=== PATIENT | male | born 1995 | race Caucasian/White ===

== ENCOUNTER 2017-03-20 02:36 | Emergency (ER) | payer OTHER ==
[~2017-03-20] VITALS: Ht 185.4 cm; Wt 100.9 kg
[2017-03-20 02:45] VITALS: BP 137/84; TEMP 36.8; O2SAT 98; Ht 185.4 cm; Wt 100.9 kg
[2017-03-20] MEDS ORDERED: DiphenhydrAMINE HCL 50 MG/ML VIAL IV STA (02:55)
[2017-03-20] MEDS ORDERED: SODIUM CHLORIDE 0.9% 1000ML 1,000 ML IV STA (02:55)
[2017-03-20] MEDS ORDERED: METOCLOPRAMIDE HCL INJ 5 MG/ML 2 ML VIAL IV STA (02:55)
[2017-03-20] MEDS ORDERED: KETOROLAC TROMETHAMINE 30 MG/ML VIAL IV STA (02:55)
[2017-03-20] MEDS ORDERED: DICYCLOMINE HCL 10 MG/ML 2 ML AMP IM ONE (03:00)
[2017-03-20 03:13] LABS: BASO % 0.1 %; BASO ABS # 0.01 K/uL (0-0.2); COMPLETE YES; EOS % 5.5 %; HEMATOCRIT 50.2 % (42-52); IG% 0.2 %; LYMPH % 21.6 %; MEAN CELL VOLUME 88.5 fL (80-100); MEAN CORPUSCULAR HEMOGLOBIN 30.7 pg (25-34); MEAN CORPUSCULAR HGB CONC 34.7 g/dl (32-36); MEAN PLATELET VOLUME 11.2 fL (7.4-10.4); MONO % 8.6 %; PLATELET COUNT 224 K/uL (130-400); RED BLOOD COUNT 5.67 M/uL (4.7-6.1); WHITE BLOOD COUNT 11.55 K/uL (4.8-10.8)
[2017-03-20 03:15] VITALS: O2SAT 97
[2017-03-20] MEDS ORDERED: BIOT1CAP8 PO (03:17)
[2017-03-20 03:18] LABS: MANUAL MICROSCOPIC REQUIRED? NO; REVIEW REQ? NO; URINE APPEARANCE CLEAR (CLEAR); URINE BILIRUBIN NEG (NEG); URINE COLOR YELLOW; URINE NITRITE NEG (NEG); URINE PH 5.5 (4.5-7.5); URINE SPECIFIC GRAVITY 1.033 (1.000-1.030); UROBILINOGEN NEG (NEG); ZZUR CULT IF INDIC CLEAN CATCH NO
[2017-03-20 03:20] VITALS: PULSE 84
[2017-03-20 03:39] LABS: BUN/CREATININE RATIO 14.1 (10-20); CALCIUM 8.6 mg/dl (8.5-10.1); CREATININE 0.88 mg/dl (0.60-1.40); POTASSIUM 4.1 mmol/L (3.5-5.1)
[2017-03-20 03:50] LABS: THYROID STIMULATING HORMONE 1.69 uIu/ml (0.300-4.500)
--- NOTE | 2017-03-20 03:56 | EMERGENCY ROOM VISIT NOTE ---
History First contact with patient: 02:43 Chief Complaint: ABDOMINAL PAIN Stated Complaint: SHARP ABDOMINAL PAIN,HARD TO WALK,HOT FLASHES Nursing Triage Summary: Patient ambulatory to triage, states "For the last 2 weeks, I have had really sharp, dull, hollow pains in my stomach. It was just at my belly button but now it is the entirety of my abdomen. I can't walk well because of the pain. I am now unable to go to the bathroom. My last BM was two nights ago. This all started with vomiting two weeks ago. I am no longer vomiting but am nauseated. I am getting hot flashes." History of Present Illness The patient is a 21 year old male who presents to the Emergency Room with complaints of nausea, abdominal bloating, cramping, hot flashes for the past 2 weeks who has been constipated for the past few days. Nothing makes it better or worse. 5 out of 10 throughout the belly. No localized pain. Patient denies chest pain, dyspnea, fever, chills, vomiting, diarrhea, back pain, urinary symptoms. He is tolerated by mouth fluids and food. Review of Systems See HPI for pertinent positives & negatives. A total of 10 systems reviewed and were otherwise negative. Past Medical/Surgical History Asthma, bipolar Social History Smoking Status: Current Every Day Smoker Drug Use: none Marital Status: single Housing Status: lives with family Current/Historical Medications Scheduled Biotin (Biotin), Unknown Dose PO DAILY Allergies Coded Allergies: No Known Allergies (Unverified , 03/20/17) Physical Exam Vital Signs Date Time Temp Pulse Resp B/P Pulse Ox O2 Delivery O2 Flow Rate FiO2 03/20/17 03:20 84 03/20/17 03:15 97 Room Air 03/20/17 02:45 36.8 90 18 137/84 98 Room Air Physical Exam VITALS: Vitals are noted on the nurse's note and reviewed by myself. Vital signs stable. GENERAL: Pleasant male friendly and d talkative, in no acute distress, nondiaphoretic, well-developed well-nourished. SKIN: The skin was without rashes, erythema, edema, or bruising. There is no tenting of the skin. Capillary reflex less than 2 seconds. HEAD: Normocephalic atraumatic. EARS: External auditory canals clear, tympanic membranes pearly ku without erythema or effusion bilaterally. EYES: Pupils equal round and reactive to light and accommodation. Conjunctivae without injection, sclerae without icterus. Extraocular movements intact. NOSE: Patent, turbinates without inflammation or discharge. MOUTH: Mucous membranes moist. Pharynx without erythema or exudate. Uvula midline. Airway patent. Tongue does not deviate. NECK: Supple without nuchal rigidity. No lymphadenopathy. No thyromegaly. Cervical spine is nontender. No JVD. HEART: Regular rate and rhythm without murmurs gallops or rubs. LUNGS: Clear to auscultation bilaterally without wheezes, rales or rhonchi. No dullness to percussion. No retractions or accessory muscle use. ABDOMEN: Positive bowel sounds x 4. Normal tympanic percussion. Soft, mild diffuse tenderness without localized pain, no CVA tenderness, without masses or organomegaly. [place] sign negative. No guarding or rebound tenderness. MUSCULOSKELETAL: No muscle atrophy, erythema, or edema noted. NEURO: Patient was alert and oriented to person place and time. Normal sensation to light and sharp touch. No focal neurological deficits. Medical Decision & Procedures Laboratory Results 03/20/17 02:40 Red Blood Count 5.67, Mean Corpuscular Volume 88.5, Mean Corpuscular Hemoglobin 30.7, Mean Corpuscular Hemoglobin Concent 34.7, Mean Platelet Volume 11.2, Neutrophils (%) (Auto) 64.0, Lymphocytes (%) (Auto) 21.6, Monocytes (%) (Auto) 8.6, Eosinophils (%) (Auto) 5.5, Basophils (%) (Auto) 0.1, Neutrophils # (Auto) 7.40, Lymphocytes # (Auto) 2.50, Monocytes # (Auto) 0.99, Eosinophils # (Auto) 0.63, Basophils # (Auto) 0.01 03/20/17 02:40 Test 03/20/17 02:40 White Blood Count 11.55 K/uL (4.8-10.8) Red Blood Count 5.67 M/uL (4.7-6.1) Hemoglobin 17.4 g/dL (14.0-18.0) Hematocrit 50.2 % (42-52) Mean Corpuscular Volume 88.5 fL (80-100) Mean Corpuscular Hemoglobin 30.7 pg (25-34) Mean Corpuscular Hemoglobin Concent 34.7 g/dl (32-36) Platelet Count 224 K/uL (130-400) Mean Platelet Volume 11.2 fL (7.4-10.4) Neutrophils (%) (Auto) 64.0 % Lymphocytes (%) (Auto) 21.6 % Monocytes (%) (Auto) 8.6 % Eosinophils (%) (Auto) 5.5 % Basophils (%) (Auto) 0.1 % Neutrophils # (Auto) 7.40 K/uL (1.4-6.5) Lymphocytes # (Auto) 2.50 K/uL (1.2-3.4) Monocytes # (Auto) 0.99 K/uL (0.11-0.59) Eosinophils # (Auto) 0.63 K/uL (0-0.5) Basophils # (Auto) 0.01 K/uL (0-0.2) RDW Standard Deviation 40.3 fL (36.4-46.3) RDW Coefficient of Variation 12.6 % (11.5-14.5) Immature Granulocyte % (Auto) 0.2 % Immature Granulocyte # (Auto) 0.02 K/uL (0.00-0.02) Urine Color YELLOW Urine Appearance CLEAR (CLEAR) Urine pH 5.5 (4.5-7.5) Urine Specific [place] 1.033 (1.000-1.030) Urine Protein NEG (NEG) Urine Glucose (UA) NEG (NEG) Urine Ketones TRACE (NEG) Urine Occult Blood NEG (NEG) Urine Nitrite NEG (NEG) Urine Bilirubin NEG (NEG) Urine Urobilinogen NEG (NEG) Urine Leukocyte Esterase NEG (NEG) Anion Gap 6.0 mmol/L (3-11) Est Creatinine Clear Calc Drug Dose 165.8 ml/min Estimated GFR () 142.3 Estimated GFR (Non- 122.8 BUN/Creatinine Ratio 14.1 (10-20) Calcium Level 8.6 mg/dl (8.5-10.1) Total Bilirubin 0.8 mg/dl (0.2-1) Direct Bilirubin 0.1 mg/dl (0-0.2) Aspartate Amino Transf (AST/SGOT) 19 U/L (15-37) Alanine Aminotransferase (ALT/SGPT) 29 U/L (12-78) Alkaline Phosphatase 100 U/L (45-117) Total Protein 7.4 gm/dl (6.4-8.2) Albumin 4.1 gm/dl (3.4-5.0) Lipase 138 U/L (73-393) Thyroid Stimulating Hormone (TSH) 1.690 uIu/ml (0.300-4.500) Medications Administered Medications (Trade) Dose Ordered Sig/Maria Guadalupe Route Start Time Stop Time Status Last Admin Dose Admin Dicyclomine HCl (Bentyl Inj) 20 mg NOW ONCE IM 03/20/17 03:00 03/20/17 03:01 DC 03/20/17 03:10 20 MG Ketorolac Tromethamine (Toradol Inj) 30 mg NOW STAT IV 03/20/17 02:55 03/20/17 02:58 DC 03/20/17 03:10 30 MG Metoclopramide HCl (Reglan Inj) 10 mg NOW STAT IV 03/20/17 02:55 03/20/17 02:58 DC 03/20/17 03:09 10 MG Diphenhydramine HCl 25 mg 25 mg NOW STAT IV 03/20/17 02:55 03/20/17 02:58 DC 03/20/17 03:09 25 MG Sodium Chloride (Nss 1000ml) 1,000 ml @ 999 mls/hr Q1H1M STAT IV 03/20/17 02:55 03/20/17 03:55 03/20/17 03:09 999 MLS/HR ED Course Prior records/ancillary studies reviewed. Triage Nursing notes reviewed. Additional history obtained from family. The patient's history was concerning for abdominal pain. Differential diagnosis: Etiologies such as IBS, stress, appendicitis, diverticulitis, PUD, biliary pathology, UTI, pancreatitis, obstruction, mesenteric ischemia, aortic pathology , infections, inflammatory bowel disease, renal colic, as well as others were entertained. Physical examination findings: As above. ER treatment provided: Bentyl, Reglan, Toradol, IV fluids On reassessment the patient felt better. Diagnostics interpreted by me: The labs revealed mild leukocytosis. No worrisome electrolyte abnormality Imaging studies: Acute abdominal series with no free air, obstruction or pneumothorax per my interpretation Exam and history seem consistent with abdominal pain most likely related to IBS and constipation. Patient is well-appearing. He was advised to take magnesium citrate as directed. He was neurovascularly and neurologic intact. He did not have acute abdomen on exam. He was advised to rest, decrease stress, take medications as directed and to follow-up family care in a few days or here in the ER sooner for abdominal pain, fevers, vomiting, worsening signs or symptoms or as needed. Patient and related out of the ER without difficulties. He was tolerating fluids. By the evaluation outlined above emergent etiologies such as appendicitis, diverticulitis, PUD, biliary pathology, UTI, pancreatitis, obstruction, mesenteric ischemia, aortic pathology, infections, inflammatory bowel disease, renal colic, as well as others were deemed relatively unlikely. The pt informed about the findings as listed above. All questions were answered and pleased with the treatment. Return instructions were outlined and the patient was discharged in stable condition. Outpatient prescription management: Magnesium citrate, Zofran Referral: The patient was referred back to their primary care physician for follow-up in 2 to 3 days for a recheck of the current condition. Case reviewed with my attending Medical Decision As above Impression Primary Impression: Abdominal cramping, generalized Additional Impression: Constipation Departure Information Dispostion Home / Self-Care Condition GOOD Referrals No Doctor, Assigned (PCP) Patient Instructions My [facility] Additional Instructions DO NOT drive, drink alcohol, operate machinery, or perform dangerous activities today. You were given medications in the ER that can affect your ability to safely function or operate a vehicle. Magnesium citrate: Drink half the bottle when you get up, if you do not have a bowel movement within 6 hours then drink the rest. Stay near a toilet. Ibuprofen(Motrin, Advil) may be used for fever or pain. Use 600mg every six hours as needed. Take with food. Avoid using more than 2400mg in a 24 hour period. Do not use 2400mg per day for more than three consecutive days without physician direction. Prolonged inappropriate use can lead to stomach upset or ulcers. (AND/OR) Acetaminophen(Tylenol) may be used for fever or pain. Use 1000mg every six hours as needed. Avoid using more than 3000mg in a 24 hour period. Zofran 4mg: Take one every six hours as needed for nausea. Avoid alcohol, operating machinery or dangerous equipment, working on ladders or roofs, DRIVING , or situations where being under the influence may be dangerous. Rest and drink plenty of fluids as tolerated. Slow sips of water or sports drinks are recommended instead of large amounts all at once. Continue current medications. Return to the ER immediately for worsening or persistent abdominal pain, vomiting, fevers, chest pains, difficulty breathing, black or bloody stools, worsening of your condition, or as needed. Follow up with your primary physician in one to 2 days for a recheck of your current condition. Problem Qualifiers
[2017-03-20] MEDS ORDERED: MAGNESIUM CITRATE 296 ML/BTL PO ONE (04:00)
[2017-03-20] MEDS ORDERED: ONDANSETRON HOME PACK 4MG OD TAB PO ONE (04:00)
--- NOTE | 2017-03-20 09:27 | DIAGNOSTIC IMAGING REPORT ---
PA CHEST RADIOGRAPH AND UPRIGHT AND SUPINE AP RADIOGRAPHS OF THE ABDOMEN CLINICAL HISTORY: Abdominal pain. COMPARISON STUDY: No previous studies for comparison. FINDINGS: Lung volumes are normal. Lungs are clear. There is no pneumothorax or pleural effusion. Cardiac size is normal. Mediastinal contours are normal. There is no evidence of pulmonary edema. There is no free air. The bowel gas pattern is normal. No calcifications are identified. IMPRESSION: 1. No free air or evidence of bowel obstruction. 2. No acute cardiopulmonary findings. Electronically signed by: Dev Cooney M.D. 03/20/2017 9:26 AM Dictated Date/Time: 03/20/2017 9:25 AM
== END 2017-03-20 04:04 | disposition home or self-care (01) ==
LOC: C.EDB 02:38
DX: R10.84 Generalized abdominal pain (principal); K59.00 Constipation, unspecified; J45.909 Unspecified asthma, uncomplicated; F31.9 Bipolar disorder, unspecified; F17.200 Nicotine dependence, unspecified, uncomplicated

== ENCOUNTER 2018-03-09 06:24 | Emergency (ER) | payer OTHER ==
[~2018-03-09] VITALS: Ht 188 cm; Wt 96.7 kg
[~2018-03-09 06:24] MED LIST: BIOT1CAP8 PO
[2018-03-09 06:27] VITALS: TEMP 36.3; Ht 188 cm; Wt 96.7 kg
[2018-03-09] MEDS ORDERED: LORAZEPAM 0.5 MG TAB SL STA (06:50)
--- NOTE | 2018-03-09 07:03 | EMERGENCY ROOM VISIT NOTE ---
History Report prepared by Elinoribjaquelin: Lisa Nazario Under the Supervision of: Dr. Mike Bell D.O. First contact with patient: 06:36 Chief Complaint: ANXIETY Stated Complaint: OVERWHELMING ANXIETY,AGGITATION,EUPHORIA,PANIC History of Present Illness The patient is a 22 year old male who presents to the Emergency Room with complaints of worsening anxiety. He admits to a history of anxiety, manic depression and bipolar disorder. After visiting friends a few days ago, he was overcome with a feeling of agitation, panic and "impending doom". He notes he has experienced some shortness of breath and states "my chest feels heavy and like it's beating really fast". When he was in high school, he admitted himself to a hospital in [place] and was put on medication for bipolar disorder. The last time he saw a psychiatrist was about 1.5 years ago when he lived in [place]. He uses recreational marijuana and states the last time he used was 2 days ago. He denies any SI or HI. He has previously undergone sinus surgery and ear tube placement as a child. The patient is a licensed retail supervisor and states he lives at home with his parents. He has been eating and drinking normally. Source of History: patient Onset: past few days [employer] ROOM Position: other (global) Quality: other (anxiety ) Timing: worsening Associated Symptoms: + chest pain ("heaviness"), + SOB Review of Systems See HPI for pertinent positives & negatives. A total of 10 systems reviewed and were otherwise negative. Past Medical & Surgical Medical Problems: (1) Anxiety (2) Bipolar depression (3) Manic depression Social History Smoking Status: Current Every Day Smoker Alcohol Use: occasionally Drug Use: none Marital Status: single Housing Status: lives with family Occupation Status: employed Current/Historical Medications No Active Prescriptions or Reported Meds Allergies Coded Allergies: No Known Allergies (Unverified , 03/09/18) Physical Exam Vital Signs Date Time Temp Pulse Resp B/P (MAP) Pulse Ox O2 Delivery O2 Flow Rate FiO2 03/09/18 11:18 84 136/82 99 03/09/18 07:13 90 03/09/18 06:27 36.3 87 20 143/77 97 Room Air Physical Exam GENERAL: Patient is awake, alert and somewhat anxious appearing EYES: The conjunctivae are clear. The pupils are round and reactive. EARS, NOSE, MOUTH AND THROAT: The nose is without any evidence of any deformity. Mucous membranes are moist tongue is midline NECK: The neck is nontender and supple. RESPIRATORY: Normal respiratory effort is noted there is no evidence of wheezing rhonchi or rales CARDIOVASCULAR: Heart sounds are tachycardic but regular, no definite murmurs noted, no rubs or gallops, normal S1 normal S2 GASTROINTESTINAL: The abdomen is soft. Bowel sounds are present in all quadrants. Abdomen is nontender MUSCULOSKELETAL/EXTREMITIES: There is no evidence of gross deformity full range of motion is noted in the hips and shoulders SKIN: There is no obvious evidence of any rash. There are no petechiae, pallor or cyanosis noted. NEUROLOGIC: Patient is awake alert and oriented x3 strength is symmetric patellar reflexes are 2+ bilaterally PSYCHIATRIC: The patients affect was calm, appears somewhat anxious, currently denying any SI or HI. Medical Decision & Procedures ER Provider Diagnostic Interpretation: Radiology results as stated below per my review and radiologist interpretation: CHEST ONE VIEW PORTABLE HISTORY: 22 years-old Male Overdose acute anxiety with drug overdose COMPARISON: Acute abdominal series radiographs 03/20/2017 TECHNIQUE: Portable AP view of the chest FINDINGS: Cardiomediastinal and hilar silhouettes are within normal limits. There is no pneumothorax, pleural effusion, focal airspace consolidation or overt pulmonary edema. Bones of the chest appear grossly intact. IMPRESSION: No acute process. The above report was generated using voice recognition software. It may contain grammatical, syntax or spelling errors. Electronically signed by: Que Maynard M.D. 03/09/2018 7:19 AM Laboratory Results 03/09/18 07:08 Red Blood Count 5.15, Mean Corpuscular Volume 88.7, Mean Corpuscular Hemoglobin 31.1, Mean Corpuscular Hemoglobin Concent 35.0, Mean Platelet Volume 11.0, Neutrophils (%) (Auto) 80.7, Lymphocytes (%) (Auto) 11.4, Monocytes (%) (Auto) 5.0, Eosinophils (%) (Auto) 2.6, Basophils (%) (Auto) 0.1, Neutrophils # (Auto) 7.55, Lymphocytes # (Auto) 1.07, Monocytes # (Auto) 0.47, Eosinophils # (Auto) 0.24, Basophils # (Auto) 0.01 03/09/18 07:08 Test 03/09/18 07:00 03/09/18 07:08 Urine Color YELLOW Urine Appearance CLEAR (CLEAR) Urine pH 7.0 (4.5-7.5) Urine Specific [place] 1.010 (1.000-1.030) Urine Protein NEG (NEG) Urine Glucose (UA) NEG (NEG) Urine Ketones NEG (NEG) Urine Occult Blood NEG (NEG) Urine Nitrite NEG (NEG) Urine Bilirubin NEG (NEG) Urine Urobilinogen NEG (NEG) Urine Leukocyte Esterase NEG (NEG) Urine Opiates Screen NEG (NEG) Urine Methadone, Qualitative NEG (NEG) Urine Barbiturates NEG (NEG) Urine Phencyclidine (PCP) Level NEG (NEG) Ur Amphetamine/Methamphetamine NEG (NEG) MDMA (Ecstasy) Screen NEG (NEG) Urine Benzodiazepines Screen NEG (NEG) Urine Cocaine Metabolite NEG (NEG) Urine Marijuana (THC) POS (NEG) White Blood Count 9.36 K/uL (4.8-10.8) Red Blood Count 5.15 M/uL (4.7-6.1) Hemoglobin 16.0 g/dL (14.0-18.0) Hematocrit 45.7 % (42-52) Mean Corpuscular Volume 88.7 fL (80-100) Mean Corpuscular Hemoglobin 31.1 pg (25-34) Mean Corpuscular Hemoglobin Concent 35.0 g/dl (32-36) Platelet Count 185 K/uL (130-400) Mean Platelet Volume 11.0 fL (7.4-10.4) Neutrophils (%) (Auto) 80.7 % Lymphocytes (%) (Auto) 11.4 % Monocytes (%) (Auto) 5.0 % Eosinophils (%) (Auto) 2.6 % Basophils (%) (Auto) 0.1 % Neutrophils # (Auto) 7.55 K/uL (1.4-6.5) Lymphocytes # (Auto) 1.07 K/uL (1.2-3.4) Monocytes # (Auto) 0.47 K/uL (0.11-0.59) Eosinophils # (Auto) 0.24 K/uL (0-0.5) Basophils # (Auto) 0.01 K/uL (0-0.2) RDW Standard Deviation 42.4 fL (36.4-46.3) RDW Coefficient of Variation 13.1 % (11.5-14.5) Immature Granulocyte % (Auto) 0.2 % Immature Granulocyte # (Auto) 0.02 K/uL (0.00-0.02) Prothrombin Time 10.8 SECONDS (9.0-12.0) Prothromb Time International Ratio 1.0 (0.9-1.1) Activated Partial Thromboplast Time 28.7 SECONDS (21.0-31.0) Partial Thromboplastin Ratio 1.1 Anion Gap 5.0 mmol/L (3-11) Est Creatinine Clear Calc Drug Dose 160.4 ml/min Estimated GFR () 144.0 Estimated GFR (Non- 124.3 BUN/Creatinine Ratio 13.5 (10-20) Calcium Level 9.0 mg/dl (8.5-10.1) Total Bilirubin 0.9 mg/dl (0.2-1) Direct Bilirubin 0.3 mg/dl (0-0.2) Aspartate Amino Transf (AST/SGOT) 21 U/L (15-37) Alanine Aminotransferase (ALT/SGPT) 36 U/L (12-78) Alkaline Phosphatase 86 U/L (45-117) Total Creatine Kinase 138 U/L (39-308) Creatine Kinase MB 0.7 ng/ml (0.5-3.6) Creatine Kinase MB Ratio 0.5 (0-3.0) Troponin I < 0.015 ng/ml (0-0.045) Total Protein 7.3 gm/dl (6.4-8.2) Albumin 4.2 gm/dl (3.4-5.0) Lipase 150 U/L (73-393) Salicylates Level < 1.7 mg/dl (2.8-20) Acetaminophen Level < 2 ug/ml (10-30) Ethyl Alcohol mg/dL < 3.0 mg/dl (0-3) Laboratory results per my review. Medications Administered Medications (Trade) Dose Ordered Sig/Maria Guadalupe Route Start Time Stop Time Status Last Admin Dose Admin Lorazepam (Ativan Tab) 0.5 mg NOW STAT SL 03/09/18 06:50 03/09/18 06:51 DC 03/09/18 07:16 0.5 MG Lorazepam (Ativan 1MG Home Pack) 1 homepack UD ONCE PO 03/09/18 11:15 03/09/18 11:16 DC 03/09/18 11:10 1 HOMEPACK ECG Per My Interpretation Indication: chest pain Rate (beats per minute): 89 Rhythm: normal sinus Findings: no ectopy, other (No acute ST segments) Comparison ECG Date: no prior available ED Course 0641: The patient was evaluated in room A6. A complete history and physical examination were performed. 0650: Ativan 0.5 mg SL. 0805: Nursing informed me the patient has been medically cleared. 0807: I reevaluated the patient. He is feeling more anxious. 1055: I reevaluated the patient. He is feeling well and is ready to go home. I discussed his results and discharge instructions and he verbalized complete understanding and agreement. Medical Decision Prior records/ancillary studies reviewed. Triage Nursing notes reviewed. The patient's history was concerning for possible psychiatric disturbance. Differential diagnosis: Etiologies such as mood disorder, infection, hypoglycemia, electrolyte abnormalities, cardiac sources, intracerebral event, toxicologic, neurologic, as well as others were entertained. The patient is a 22-year-old male who presented to the emergency department for a mental health evaluation. The patient was very concerned that he had anxiety. The patient had a history of anxiety reaction in the past and was started on medications for bipolar disorder but stopped taking them. The patient does not have any outpatient follow-up scheduled. He was complaining of mental health problems but also had physical complaints with his anxiety. I discussed the patient's laboratory and radiographic studies with him. He was medically cleared in the emergency department. He is evaluated by the mental health case briefer in the emergency department. The patient was not felt to meet criteria for inpatient admission at this time. I agree with this assessment. The patient was advised to continue all medications as prescribed and rest. He was treated with Ativan in the emergency department with some success. He was also encouraged to follow-up with his primary care physician as well as a primary therapist as soon as possible. Otherwise he was encouraged to return to the emergency department immediately if symptoms change worsen or the need arises. Medication Reconcilliation Current Medication List: was personally reviewed by me Blood Pressure Screening Patient's blood pressure: Elevated blood pressure Blood pressure disposition: Elevated BP felt to be situational Impression Primary Impression: Anxiety Additional Impression: Chest pain Scribe Attestation The scribe's documentation has been prepared under my direction and personally reviewed by me in its entirety. I confirm that the note above accurately reflects all work, treatment, procedures, and medical decision making performed by me. Departure Information Dispostion Home / Self-Care Prescriptions No Active Prescriptions or Reported Meds Referrals No Doctor, Assigned (PCP) Patient Instructions Anxiety Disorder, My [facility] Additional Instructions Follow-up with your therapist as soon as possible. Call your family doctor to schedule a follow-up appointment. Rest and avoid any strenuous activity. Return to the emergency department immediately or call crisis if symptoms change worsen or the need arises. Problem Qualifiers Additional Impression: Chest pain Chest pain type: unspecified Qualified Codes: R07.9 - Chest pain, unspecified
--- NOTE | 2018-03-09 07:21 | DIAGNOSTIC IMAGING REPORT ---
CHEST ONE VIEW PORTABLE HISTORY: 22 years-old Male Overdose acute anxiety with drug overdose COMPARISON: Acute abdominal series radiographs 03/20/2017 TECHNIQUE: Portable AP view of the chest FINDINGS: Cardiomediastinal and hilar silhouettes are within normal limits. There is no pneumothorax, pleural effusion, focal airspace consolidation or overt pulmonary edema. Bones of the chest appear grossly intact. IMPRESSION: No acute process. The above report was generated using voice recognition software. It may contain grammatical, syntax or spelling errors. Electronically signed by: Que Maynard M.D. 03/09/2018 7:19 AM Dictated Date/Time: 03/09/2018 7:19 AM
[2018-03-09 07:27] LABS: BASO % 0.1 %; BASO ABS # 0.01 K/uL (0-0.2); EOS % 2.6 %; EOS ABS # 0.24 K/uL (0-0.5); HEMATOCRIT 45.7 % (42-52); IG# 0.02 K/uL (0.00-0.02); LYMPH % 11.4 %; LYMPH ABS # 1.07 K/uL (1.2-3.4); MEAN CELL VOLUME 88.7 fL (80-100); MEAN CORPUSCULAR HEMOGLOBIN 31.1 pg (25-34); MONO ABS # 0.47 K/uL (0.11-0.59); NEUT % 80.7 %; NEUT ABS # 7.55 K/uL (1.4-6.5); PLATELET COUNT 185 K/uL (130-400); RED CELL DISTRIBUTION WIDTH CV 13.1 % (11.5-14.5); RED CELL DISTRIBUTION WIDTH SD 42.4 fL (36.4-46.3); WHITE BLOOD COUNT 9.36 K/uL (4.8-10.8)
[2018-03-09 07:34] LABS: PTT PATIENT 28.7 SECONDS (21.0-31.0)
[2018-03-09 07:59] LABS: ALBUMIN 4.2 gm/dl (3.4-5.0); ALT/SGPT 36 U/L (12-78); AST/SGOT 21 U/L (15-37); BLOOD UREA NITROGEN 11 mg/dl (7-18); CARBON DIOXIDE 26 mmol/L (21-32); CREATININE 0.84 mg/dl (0.60-1.40); GLUCOSE 121 mg/dl (70-99); LIPASE 150 U/L (73-393); SODIUM 139 mmol/L (136-145)
[2018-03-09 08:04] LABS: ALKALINE PHOSPHATASE 86 U/L (45-117); CKMB 0.7 ng/ml (0.5-3.6); TOTAL PROTEIN 7.3 gm/dl (6.4-8.2)
[2018-03-09] MEDS ORDERED: ATIVAN 1MG HOMEPACK PO ONE (11:15)
[2018-03-09 11:18] VITALS: BP 136/82; PULSE 84; O2SAT 99
== END 2018-03-09 11:23 | disposition home or self-care (01) ==
LOC: C.EDB 06:25 → C.EDA 11:23
DX: F41.9 Anxiety disorder, unspecified (principal); R07.9 Chest pain, unspecified; F31.9 Bipolar disorder, unspecified; F32.9 Major depressive disorder, single episode, unspecified; F17.200 Nicotine dependence, unspecified, uncomplicated

== ENCOUNTER 2020-03-22 20:57 | Inpatient (IN) ==
[2020-03-22] MEDS ORDERED: ADENOSINE IV SOLN 3 MG/ML 2 ML VIAL IV ONE (21:11)
--- NOTE | 2020-03-22 21:43 | Emergency Department Note ---
History of Present Illness General Chief complaint: Cardiac Assessment Stated complaint: IREEGULAR HEART BEAT, CHEST PAIN, SHAKING Time Seen by Provider: 03/22/20 21:16 Source: patient Mode of arrival: ambulatory Limitations: no limitations History of Present Illness Provider complaint: racing heart, palpitations Onset (ago): hour(s) Location: chest Radiation: non-radiation Severity: moderate Maximum Pain Intensity: 10 Quality: + constant Relieved By: + none Exacerbated By: + movement Associated symptoms: + nausea/vomiting and + shortness of breath; no syncope Treatments prior to arrival: none This is a 24 yo male who presents to the ER with complaints of palpitations and chest. Pt states symptoms began at 8am. States he has a sense of a rapid heart rate that has gotten worse throughout the day but felt mostly constant. Pt states no prior hx of heart problems or dysrhythmia. No recent change in meds. Pt admits to occasional use of marijuana but denies any other drug or alcohol use. No recent illness. No know contact with any covid 19 positive individual. Pt states he is adopted and doesn't know his family history. Pt denies any recent travel or change in activity. Pt states with exertion the pain is worse, sense of racing heart is worse, he feels slightly short of breath and slightly nauseated. No dizziness. No change in bowel/bladder function. No headaches, numbness/tingling. Chest pain nonradiating, no change with position. Pt seen during a time of high acuity and national emergency pandemic while wearing PPE. Home Medications Home Medications Medication Instructions Recorded Confirmed Type hydroxyzine HCl 25 - 50 mg PO HS PRN 09/10/19 03/22/20 History lithium carbonate 150 mg PO BID 09/10/19 03/22/20 History lorazepam [Ativan] 0.5 mg PO DAILY PRN 09/10/19 03/22/20 History methylphenidate HCl 18 mg PO QAM 03/22/20 03/22/20 History apixaban [Eliquis] 5 mg PO BID 30 Days #60 tab 03/25/20 Rx metoprolol tartrate 25 mg PO TID 30 Days #90 tab 03/25/20 Rx nicotine 14 mg TRANSDERMAL QAM 30 Days #30 03/25/20 Rx ea Allergies Allergy/AdvReac Type Severity Reaction Status Date / Time No Known Allergies Allergy Unverified 03/22/20 22:46 Past Med/Surg History Medical History Anxiety (Chronic) Bipolar depression (Chronic) Manic depression (Chronic) Surgical History History of placement of ear tubes (Resolved) History of sinus surgery (Resolved) Social History Preferred Language: [place]at[place] Communication Ability: Effective Hat Cutter Required: No Beliefs That Will Affect Care: None Current Living Situation: Family Feels Safe at Home: Yes Smoking Status: Unknown if ever smoked Hx Alcohol Use: No Hx Substance Use: No Review of Systems See HPI for pertinent positives & negatives. and A total of 10 systems reviewed and were otherwise negative Physical Exam Vital Signs Vital Signs - 24 hr 03/22/20 21:00 03/22/20 21:09 03/22/20 21:15 Temperature 36.8 C Temperature Source Oral Pulse Rate 208 H 200 H 197 H Pulse Rate [Left Finger] Pulse Rate from SpO2 Sensor 200 H 196 H Respiratory Rate 18 27 H 28 H Blood Pressure 125/73 148/94 H Blood Pressure [Right Arm] Blood Pressure Mean 90 116 Blood Pressure Mean [Right Arm] Pulse Oximetry 99 100 100 Oxygen Delivery Method Room Air Sepsis Recent Fever Within 48 Hours No Sepsis New/Unexplained Change in Mental Status No Sepsis Action Taken by Nursing No Action Required 03/22/20 21:22 03/22/20 21:30 03/22/20 21:31 Temperature Temperature Source Pulse Rate 188 H 189 H 185 H Pulse Rate [Left Finger] Pulse Rate from SpO2 Sensor 189 H 187 H 187 H Respiratory Rate 14 25 H 24 Blood Pressure 159/90 H 134/89 Blood Pressure [Right Arm] Blood Pressure Mean 119 101 Blood Pressure Mean [Right Arm] Pulse Oximetry 100 100 100 Oxygen Delivery Method Sepsis Recent Fever Within 48 Hours Sepsis New/Unexplained Change in Mental Status Sepsis Action Taken by Nursing 03/22/20 21:45 03/22/20 22:00 03/22/20 22:15 Temperature Temperature Source Pulse Rate 188 H 183 H 190 H Pulse Rate [Left Finger] Pulse Rate from SpO2 Sensor 181 H 185 H Respiratory Rate 19 20 27 H Blood Pressure 131/90 Blood Pressure [Right Arm] Blood Pressure Mean 115 Blood Pressure Mean [Right Arm] Pulse Oximetry 99 100 Oxygen Delivery Method Sepsis Recent Fever Within 48 Hours Sepsis New/Unexplained Change in Mental Status Sepsis Action Taken by Nursing 03/22/20 22:30 03/22/20 22:46 03/22/20 23:00 Temperature Temperature Source Pulse Rate 102 H 82 79 Pulse Rate [Left Finger] Pulse Rate from SpO2 Sensor Respiratory Rate 15 16 12 Blood Pressure 148/93 H Blood Pressure [Right Arm] Blood Pressure Mean 102 Blood Pressure Mean [Right Arm] Pulse Oximetry Oxygen Delivery Method Sepsis Recent Fever Within 48 Hours Sepsis New/Unexplained Change in Mental Status Sepsis Action Taken by Nursing 03/22/20 23:06 03/22/20 23:12 03/22/20 23:30 Temperature Temperature Source Pulse Rate 85 79 Pulse Rate [Left Finger] 88 Pulse Rate from SpO2 Sensor 74 Respiratory Rate 19 19 21 Blood Pressure 104/69 Blood Pressure [Right Arm] 104/69 Blood Pressure Mean 80 Blood Pressure Mean [Right Arm] 80 Pulse Oximetry 97 98 Oxygen Delivery Method Sepsis Recent Fever Within 48 Hours Sepsis New/Unexplained Change in Mental Status Sepsis Action Taken by Nursing 03/22/20 23:32 03/22/20 23:33 03/22/20 23:45 Temperature Temperature Source Pulse Rate 81 79 Pulse Rate [Left Finger] 84 Pulse Rate from SpO2 Sensor 84 76 Respiratory Rate 19 19 21 Blood Pressure 130/64 117/88 Blood Pressure [Right Arm] 130/64 Blood Pressure Mean 103 92 Blood Pressure Mean [Right Arm] 86 Pulse Oximetry 98 98 99 Oxygen Delivery Method Room Air Sepsis Recent Fever Within 48 Hours Sepsis New/Unexplained Change in Mental Status Sepsis Action Taken by Nursing 03/23/20 00:00 03/23/20 00:01 Temperature Temperature Source Pulse Rate 78 69 Pulse Rate [Left Finger] Pulse Rate from SpO2 Sensor 77 74 Respiratory Rate 19 20 Blood Pressure 119/74 Blood Pressure [Right Arm] Blood Pressure Mean 77 Blood Pressure Mean [Right Arm] Pulse Oximetry 97 97 Oxygen Delivery Method Sepsis Recent Fever Within 48 Hours Sepsis New/Unexplained Change in Mental Status Sepsis Action Taken by Nursing GENERAL: alert, anxious appearing, well nourished, no distress, non-toxic EYE EXAM: normal conjunctiva, PERRL and EOM's grossly intact OROPHARYNX: no exudate, no erythema, lips, buccal mucosa, and tongue normal and mucous membranes are moist NECK: supple, no nuchal rigidity, no adenopathy, non-tender LUNGS: Clear to auscultation. Normal chest wall mechanics, no w/r/r HEART: no murmurs, S1 normal and S2 normal, HR 187 on tele, appears to be SVT ABDOMEN: abdomen soft, non-tender, normo-active bowel sounds, no masses, no rebound or guarding. BACK: Back is symmetrical on inspection and there is no deformity, no midline tenderness, no CVA tenderness. SKIN: no rashes and no bruising UPPER EXTREMITIES: upper extremities are grossly normal. FROM, nml pulses b/l. LOWER EXTREMITIES: No pitting edema. FROM, nml pulses b/l. NEURO EXAM: Normal sensorium, cranial nerves II-XII grossly intact, normal speec h, no gross weakness of arms, no gross weakness of legs. Gross sensation intact. Course Course 2125: Pt was evaluated in room A1 and nursing staff placed pt on monitor and started IV in anticipation of chemical cardioversion. Pt given 6mg and then 12 mg of adenosine. No conversion after adenosine, appears to be rapid atrial flutter when slowed. I discussed electrical cardioversion with the patient and he would like to avoid this if possible. 2144: Discussed with Dr. Torres given concern for possible short IN on one tracing. He will review EKG's. 2149: Dr. Torres reviewed and agrees with plan for cardizem IV. Discussed anticoagulation - would start on eliquis 5 mg BID. 2199: Pt updated on discussion and plan. 2251: Updated Dr. Torres. Recommends admission on cardizem drip at this time. 2325: Case discussed with Dr. Powers. Administered Medications Discontinued Medications Adenosine (Adenosine) Confirm Administered Dose 18 mg IV .STK-MED ONE Stop: 03/22/20 21:12 Last Admin: 03/22/20 21:35 Dose: 18 mg Documented by: [id number] Apixaban (Eliquis) 5 mg PO NOW STA Stop: 03/22/20 23:07 Last Admin: 03/22/20 23:22 Dose: 5 mg Documented by: [id number] Apixaban (Eliquis) 5 mg PO BID [facility] Stop: 04/22/20 08:59 Last Admin: 03/25/20 09:25 Dose: 5 mg Documented by: [id number] Admin: 03/24/20 20:46 Dose: 5 mg Documented by: [id number] Admin: 03/24/20 08:19 Dose: 5 mg Documented by: [id number] Admin: 03/23/20 20:49 Dose: 5 mg Documented by: [id number] Admin: 03/23/20 08:06 Dose: 5 mg Documented by: [id number] Diltiazem HCl (Cardizem) 20 mg IV NOW STA Stop: 03/22/20 22:00 Last Admin: 03/22/20 22:15 Dose: 20 mg Documented by: [id number] Cosigned by: [id number] Hydroxyzine HCl (Vistaril) 25 mg PO HSZ PRN PRN Reason: Sleep Stop: 04/23/20 14:04 Last Admin: 03/24/20 20:46 Dose: 12.5 mg Documented by: [id number] Sodium Chloride (Nss 1000ml) 1,000 mls @ 999 mls/hr IV .Q1H1M ONE Stop: 03/22/20 22:59 Last Infusion: 03/22/20 22:50 Dose: 0 mls/hr Documented by: [id number] Admin: 03/22/20 22:15 Dose: 999 mls/hr Documented by: [id number] Diltiazem HCl 125 mg/ Dextrose 125 mls @ 5 mls/hr IV .Q24H NINA; Protocol Stop: 04/21/20 21:59 Last Admin: 03/24/20 00:30 Dose: Not Given Documented by: [id number] Titration: 03/23/20 10:59 Dose: 0 mg/hr, 0 mls/hr Documented by: [id number] Cosigned by: [id number] Titration: 03/23/20 06:56 Dose: 5 mg/hr, 5 mls/hr Documented by: [id number] Cosigned by: [id number] Titration: 03/23/20 02:12 Dose: 5 mg/hr, 5 mls/hr Documented by: [id number] Cosigned by: [id number] Admin: 03/22/20 23:17 Dose: 2.5 mg/hr, 2.5 mls/hr Documented by: [id number] Cosigned by: [id number] Sodium Chloride (Nss 1000ml) 1,000 mls @ 75 mls/hr IV .[id number] NINA Stop: 04/22/20 01:06 Last Infusion: 03/23/20 09:37 Dose: 0 mls/hr Documented by: [id number] Admin: 03/23/20 01:15 Dose: 75 mls/hr Documented by: [id number] Sodium Chloride (Nss) 500 mls @ 80 mls/hr IV .Q6H15M NINA Stop: 04/23/20 23:54 Last Infusion: 03/25/20 11:26 Dose: 0 mls/hr Documented by: [id number] Admin: 03/25/20 06:09 Dose: 80 mls/hr Documented by: [id number] Infusion: 03/25/20 06:09 Dose: 80 mls/hr Documented by: [id number] Admin: 03/25/20 00:33 Dose: 80 mls/hr Documented by: [id number] [place] Carbonate ([place] Carbonate) 150 mg PO BID NINA Stop: 04/22/20 08:59 Last Admin: 03/24/20 08:20 Dose: 150 mg Documented by: [id number] Admin: 03/24/20 01:51 Dose: Not Given Documented by: [id number] Admin: 03/23/20 08:05 Dose: 150 mg Documented by: [id number] [place] Carbonate ([place] Carbonate) 150 mg PO DAILY NINA Stop: 04/24/20 08:59 Last Admin: 03/25/20 09:25 Dose: 150 mg Documented by: [id number] Metoprolol Tartrate (Lopressor) 12.5 mg PO BID NINA Stop: 04/22/20 09:24 Last Admin: 03/23/20 09:49 Dose: 12.5 mg Documented by: [id number] Metoprolol Tartrate (Lopressor) 25 mg PO BID NINA Stop: 04/22/20 17:44 Last Admin: 03/24/20 08:19 Dose: 25 mg Documented by: [id number] Admin: 03/23/20 20:49 Dose: 25 mg Documented by: [id number] Admin: 03/23/20 18:00 Dose: 25 mg Documented by: [id number] Metoprolol Tartrate (Lopressor) 25 mg PO TID NINA Stop: 04/23/20 13:59 Last Admin: 03/25/20 14:24 Dose: 25 mg Documented by: [id number] Admin: 03/25/20 09:24 Dose: 25 mg Documented by: [id number] Admin: 03/24/20 20:45 Dose: 25 mg Documented by: [id number] Admin: 03/24/20 13:07 Dose: 25 mg Documented by: [id number] Metoprolol Tartrate (Lopressor) 5 mg IV NOW STA Stop: 03/25/20 03:45 Last Admin: 03/25/20 03:56 Dose: 5 mg Documented by: [id number] Metoprolol Tartrate (Lopressor) Confirm Administered Dose 5 mg IV .STK-MED ONE Stop: 03/25/20 07:44 Last Admin: 03/25/20 07:46 Dose: 5 mg Documented by: [id number] Metoprolol Tartrate (Lopressor) 5 mg IV NOW STA Stop: 03/25/20 07:45 Last Admin: 03/25/20 07:48 Dose: Not Given Documented by: [id number] Metoprolol Tartrate (Lopressor) 2.5 mg IV NOW STA Stop: 03/25/20 07:52 Last Admin: 03/25/20 07:53 Dose: 2.5 mg Documented by: [id number] Miscellaneous () 1 ea N/A NOW [facility] Stop: 03/22/20 22:00 Last Admin: 03/22/20 23:20 Dose: 1 ea Documented by: [id number] Miscellaneous (Order Awaiting Action) 1 ea N/A QS [facility] Stop: 04/22/20 07:59 Last Admin: 03/23/20 09:43 Dose: Not Given Documented by: [id number] Miscellaneous (Remove Nicoderm Patch) 1 ea N/A DAILY@0859 [facility] Stop: 04/23/20 08:58 Last Admin: 03/25/20 09:25 Dose: 1 ea Documented by: [id number] Admin: 03/24/20 11:14 Dose: Not Given Documented by: [id number] Nicotine (Nicoderm Cq) 14 mg TD QAM [facility] Stop: 04/23/20 08:59 Last Admin: 03/25/20 09:25 Dose: 14 mg Documented by: [id number] Admin: 03/24/20 09:33 Dose: 14 mg Documented by: [id number] Potassium Chloride (Klor-Con M20) 40 meq PO NOW [facility] Stop: 03/23/20 00:27 Last Admin: 03/23/20 00:47 Dose: 40 meq Documented by: [id number] Critical Care Time Critical Care Time: Yes Total Critical Care Time: 48 Critical care of 48 min performed to assess and manage high likelihood of life- threatening dysrhythmia, involving labs/imaging/repeat EKG's performed with assessment to evaluate dysrhythmia diagnosis with frequent reassessment. This time includes bedside time, treatment discussions with patient/family/consultants, documentation time and excludes procedure time. Medical Decision Making Differential Diagnosis Differential diagnosis includes etiologies such as premature contractions, electrolyte abnormality, cardiac dysrhythmia, thyroid dysfunction, pulmonary embolism, infection, gastrointestinal, as well as others were entertained. Medical Records Attestation: I reviewed the patient's medical records. Home Medications Current Medication List: was personally reviewed by me Laboratory Data Attestation: I reviewed the patient's lab results. Result diagrams: 03/25/20 06:54 03/25/20 06:54 Lab Results 03/22/20 03/22/20 03/22/20 Range/Units 21:10 21:10 21:10 WBC 11.78 H (4.8-10.8) K/uL RBC 5.52 (4.7-6.1) M/uL Hgb 17.4 (14.0-18.0) g/dL Hct 49.0 (42-52) % MCV 88.8 (80-100) fL MCH 31.5 (25-34) pg MCHC 35.5 (32-36) g/dL RDW Std Deviation 39.5 (36.4-46.3) fL RDW Coeff of Anamika 12.4 (11.5-14.5) % Plt Count 292 (130-400) K/uL MPV 11.9 H (7.4-10.4) fL Immature Gran % (Auto) 0.3 % Neut % (Auto) 68.2 % Lymph % (Auto) 21.5 % [place] % (Auto) 7.5 % Eos % (Auto) 2.3 % Baso % (Auto) 0.2 % Immature Gran # (Auto) 0.03 H (0.00-0.02) K/uL Neut # (Auto) 8.05 H (1.4-6.5) K/uL Lymph # (Auto) 2.53 (1.2-3.4) K/uL [place] # (Auto) 0.88 H (0.11-0.59) K/uL Eos # (Auto) 0.27 (0-0.5) K/uL Baso # (Auto) 0.02 (0-0.2) K/uL Sodium 137 (136-145) mmol/L Potassium 3.4 L (3.5-5.1) mmol/L Chloride 105 (98-107) mmol/L Carbon Dioxide 24 (21-32) mmol/L Anion Gap 9.0 (3-11) BUN 10 (7-18) mg/dl Creatinine 1.05 (0.6-1.4) mg/dl Est Cr Clr Drug Dosing 122.6 ml/min Est GFR ( Amer) 114.6 Est GFR (Non-Af Amer) 98.9 BUN/Creatinine Ratio 9.0 L (10-20) Glucose 134 H (70-99) mg/dl Calcium 9.6 (8.5-10.1) mg/dl Magnesium 2.3 (1.8-2.4) mg/dl Total Bilirubin 1.2 H (0.2-1) mg/dl AST 24 (15-37) U/L ALT 43 (12-78) U/L Alkaline Phosphatase 90 (45-117) U/L Total Protein 7.8 (6.4-8.2) gm/dl Albumin 4.6 (3.4-5.0) gm/dl Globulin 3.2 (2.5-4.0) gm/dl Albumin/Globulin Ratio 1.4 (0.9-2) Lipase 83 (73-393) U/L TSH 1.470 (0.300-4.500) uIu/ml [place] (0.6-1.2) mmol/L Lyme Disease IgG Ab Negative (Negative) Lyme Disease IgM Ab Negative (Negative) 03/22/20 Range/Units 21:10 WBC (4.8-10.8) K/uL RBC (4.7-6.1) M/uL Hgb (14.0-18.0) g/dL Hct (42-52) % MCV (80-100) fL MCH (25-34) pg MCHC (32-36) g/dL RDW Std Deviation (36.4-46.3) fL RDW Coeff of Anamika (11.5-14.5) % Plt Count (130-400) K/uL MPV (7.4-10.4) fL Immature Gran % (Auto) % Neut % (Auto) % Lymph % (Auto) % [place] % (Auto) % Eos % (Auto) % Baso % (Auto) % Immature Gran # (Auto) (0.00-0.02) K/uL Neut # (Auto) (1.4-6.5) K/uL Lymph # (Auto) (1.2-3.4) K/uL [place] # (Auto) (0.11-0.59) K/uL Eos # (Auto) (0-0.5) K/uL Baso # (Auto) (0-0.2) K/uL Sodium (136-145) mmol/L Potassium (3.5-5.1) mmol/L Chloride (98-107) mmol/L Carbon Dioxide (21-32) mmol/L Anion Gap (3-11) BUN (7-18) mg/dl Creatinine (0.6-1.4) mg/dl Est Cr Clr Drug Dosing ml/min Est GFR ( Amer) Est GFR (Non-Af Amer) BUN/Creatinine Ratio (10-20) Glucose (70-99) mg/dl Calcium (8.5-10.1) mg/dl Magnesium (1.8-2.4) mg/dl Total Bilirubin (0.2-1) mg/dl AST (15-37) U/L ALT (12-78) U/L Alkaline Phosphatase (45-117) U/L Total Protein (6.4-8.2) gm/dl Albumin (3.4-5.0) gm/dl Globulin (2.5-4.0) gm/dl Albumin/Globulin Ratio (0.9-2) Lipase (73-393) U/L TSH (0.300-4.500) uIu/ml [place] < 0.2 L (0.6-1.2) mmol/L Lyme Disease IgG Ab (Negative) Lyme Disease IgM Ab (Negative) Imaging Data Radiologist's Impression: SINGLE VIEW CHEST CLINICAL HISTORY: Atypical chest pain. FINDINGS: An AP, portable, upright chest radiograph is compared to study dated 03/09/2018. The cardiomediastinal silhouette is unremarkable. The lungs and pleural spaces are clear. No pneumothorax is seen. The bony thorax is grossly intact. IMPRESSION: No active disease in the chest. ACT 112: Negative or not required by law. Electronically signed by: Jose E Curtis M.D. 03/22/2020 10:24 PM ECG Data Attestation: I personally reviewed and interpreted this ECG as follows: Indication: + palpitations and + tachycardia Rate (beats per minute): 200 Rhythm: + SVT ECG Intervals/blocks: + Normal QRS and + Normal QT ECG [place]: + Normal ECG ST segments: + Normal ST segments Additional Comments: Repeat EKG at 2123 showed a sinus tachycardia at 187 with a normal axis, IN interval 130, QRS 60, with slight ST depression noted in 2, 3, aVF, and V3 through V6, likely rate related. Repeat EKG following Cardizem bolus showed atrial fibrillation at a rate of 81, normal axis, QRS 82, QTc 381, prior ST depressions now resolved. Blood Pressure Blood Pressure Findings: Normal blood pressure MDM Narrative Pt presenting with sense of palpitations and chest pain and found to have rapid HR around 200 bpm. Initially thought to be SVT, pt placed in A1 and prepared to adenosine. Pt given 6mg and then 12 mg of adenosine which slowed pt revealing underlying atrial flutter but returned to prior elevated rate. Given concern for possible short IN, I discussed the case with cards for their review given that WPW should be treated differently than a.flutter. They felt no evidence of WPW and agreed with plan for cardizem. Pt slowed with cardizem and appeared to be in a rate controlled atrial fibrillation. Given various rhythms noted and pt wished to avoid electrical cardioversion if possible, discussed with hospitalist for admission. Pt denies drug use. Does take some meds but denies any changes. No recent illness. I do not suspect ACS or PE. Unknown fam hx. I feel it is reasonable for him to have inpatient cards evaluation including echo. No evidence of infectious etiology or thyroid storm. An order was placed for continuous cardiac monitoring. The monitor shows a rate of 180 with atrial flutter rhythm. Impression & Plan Atrial flutter, Atrial fibrillation, Atypical chest pain, Palpitation Discharge Plan Visit Data *Final* Discharge Date/Time: 03/23/20 00:44 Chief Complaint: Cardiac Assessment Stated Complaint: IREEGULAR HEART BEAT, CHEST PAIN, SHAKING ED Provider: Kaitlyn Pizano Discharge Problem: Atrial flutter, Atrial fibrillation, Atypical chest pain, Palpitation Patient Disposition: Admitted As Inpatient Condition: Good Discharge Instructions Interventions: ED Discharge Assessment Last Done: 03/23/20 00:44 Discharge Problem: Atrial flutter Qualifiers: Atrial flutter type: unspecified Qualified Code(s): I48.92 - Unspecified atrial flutter Atrial fibrillation Qualifiers: Atrial fibrillation type: unspecified Qualified Code(s): I48.91 - Unspecified atrial fibrillation
[2020-03-22] MEDS ORDERED: STAT IV Infusion **Titration per Protocol STA (21:59)
[2020-03-22] MEDS ORDERED: dilTIAZem HCl 5 MG/ML 5 ML VIAL IV STA (21:59)
[2020-03-22] MEDS ORDERED: SODIUM CHLORIDE 0.9% 1000ML 1,000 ML IV ONE (21:59)
[2020-03-22 22:08] LABS: Basophils # (auto) 0.02 K/uL (0-0.2); Basophils % (auto) 0.2 %; Eosinophils # (auto) 0.27 K/uL (0-0.5); Eosinophils % (auto) 2.3 %; Hemoglobin 17.4 g/dL (14.0-18.0); Immature Granulocytes # (auto) 0.03 K/uL (0.00-0.02); Immature Granulocytes % (auto) 0.3 %; Lymphocytes # (auto) 2.53 K/uL (1.2-3.4); Lymphocytes % (auto) 21.5 %; Mean Corpuscular Hemoglobin 31.5 pg (25-34); Mean Corpuscular Hgb Conc 35.5 g/dL (32-36); Mean Corpuscular Volume 88.8 fL (80-100); Mean Platelet Volume 11.9 fL (7.4-10.4); Monocytes # (auto) 0.88 K/uL (0.11-0.59); Monocytes % (auto) 7.5 %; Neutrophils # (auto) 8.05 K/uL (1.4-6.5); Neutrophils % (auto) 68.2 %; Platelet Count 292 K/uL (130-400); RDW Coefficient of Variation 12.4 % (11.5-14.5); RDW Standard Deviation 39.5 fL (36.4-46.3); Red Blood Count 5.52 M/uL (4.7-6.1); White Blood Count 11.78 K/uL (4.8-10.8)
[2020-03-22 22:16] LABS: Albumin Level 4.6 gm/dl (3.4-5.0); Calcium 9.6 mg/dl (8.5-10.1); Creatinine Clr Calc Pharmacy 122.6 ml/min; Est GFR (African American) 114.6; Est GFR (Non-African American) 98.9; Magnesium 2.3 mg/dl (1.8-2.4); Potassium 3.4 mmol/L (3.5-5.1)
--- NOTE | 2020-03-22 22:26 | XRay Report ---
SINGLE VIEW CHEST CLINICAL HISTORY: Atypical chest pain. FINDINGS: An AP, portable, upright chest radiograph is compared to study dated 03/09/2018. The cardiome diastinal silhouette is unremarkable. The lungs and pleural spaces are clear. No pneumothorax is seen . The bony thorax is grossly intact. IMPRESSION: No active disease in the chest. ACT 112: Negative or not required by law. Electronically signed by: Jose E Curtis M.D. 03/22/2020 10:24 PM
[2020-03-22 22:27] LABS: Albumin Globulin Ratio 1.4 (0.9-2); Bilirubin,Total 1.2 mg/dl (0.2-1); Globulin 3.2 gm/dl (2.5-4.0); Thyroid Stimulating Hormone 1.47 uIu/ml (0.300-4.500); Total Protein 7.8 gm/dl (6.4-8.2)
[2020-03-22 22:41] LABS: Lyme Ab IgG w/WB Rflx Negative (Negative); Lyme Ab IgM w/WB Rflx Negative (Negative)
[2020-03-22] MEDS ORDERED: APIXABAN 5 MG TABLET PO STA (23:06)
[2020-03-22] MEDS: dilTIAZem HCL 125 MG in DEXTROSE 5% 100 ML IV SCH (23:17)
[2020-03-23] MEDS ORDERED: POTASSIUM CHLORIDE 20 MEQ TABCR PO STA (00:26)
[2020-03-23] MEDS ORDERED: ACETAMINOPHEN 325 MG TAB PO PRN (01:07)
[2020-03-23] MEDS ORDERED: SODIUM CHLORIDE 0.9% 1000ML 1,000 ML IV SCH (01:07)
[2020-03-23] MEDS ORDERED: LORazepam 0.5 MG TAB PO PRN (01:07)
[2020-03-23] MEDS ORDERED: NITROGLYCERIN SL 0.4 MG/TAB TAB SL PRN (01:07)
--- NOTE | 2020-03-23 02:45 | History and Physical Report ---
DATE OF ADMISSION: 03/23/2020 CHIEF COMPLAINT: Rapid AFib. HISTORY OF PRESENT ILLNESS: This is a 24-year-old male with past medical history significant for bipolar depression, anxiety, currently living with the parents presents with palpitations. The patient says yesterday morning he woke up, he was feeling palpitations, his chest was pounding, he could see it, and when he tried to walk he was feeling lightheaded and almost passed out. It was getting difficult to breathe and had chest pains, so he came to the ER. In the ER, his heart rate was in 180s and 200s. He was given adenosine, which did not help much, but later rhythm showed atrial flutter. Cardiology was notified and they started on Cardizem drip with bolus and Eliquis.. Now it has slowed down to 60s and 70s, but still irregular Currently, he is feeling better, but still not back to his usual self because it has never happened before. He vapes cigarettes and he also smokes marijuana 2-3 times a week. Denies any alcohol use. Currently resting comfortably and hemodynamically stable. Denies any headache. Since he was started on lithium, he has some pressure feeling behind his eyes. Denies any earaches. He has some runny nose from his allergies. He has smoker's cough. Currently, no shortness of breath. Was nauseous earlier, but no vomiting, no abdominal pain. Normal bowel and bladder movements. Denies any blood in the stools or black stools. Yesterday, he had one episode of burning micturition, but that has resolved. No hematuria. No swelling in the legs, no rash. Otherwise active. ALLERGIES: No known drug allergies. PAST MEDICAL HISTORY: As mentioned above. PAST SURGICAL HISTORY: He had some sinus surgery and ear tube placements. MEDICATIONS: The patient is on lithium 150 mg p.o. b.i.d., Ativan 0.5 mg daily p.r.n., methylphenidate 18 mg p.o. daily. FAMILY HISTORY: He is adopted. SOCIAL HISTORY: He vapes and also smokes marijuana 2-3 times a week. REVIEW OF SYSTEMS: As per HPI. Rest of the review of systems negative. PHYSICAL EXAMINATION: GENERAL: The patient is of moderate build, not in acute distress. VITAL SIGNS: Temperature 36.8, pulse 69, respiratory rate 20, blood pressure 119/74, oxygen 97% on room air. When he came in, his pulse was in the 200s and 180s. HEENT: Pupils equal, round, and reactive to light. NECK: No JVD, supple. CARDIOVASCULAR: S1, S2 heard, irregular rhythm. No murmur. RESPIRATORY SYSTEM: Normal AP diameter. No accessory muscle use. No wheezing, no crackles. ABDOMEN: Soft, bowel sounds present, nontender. No distention. CENTRAL NERVOUS SYSTEM: Cranial nerves II-XII grossly intact. Nonfocal. EXTREMITIES: No edema, no erythema. LABORATORY DATA: WBC 11.7, hemoglobin 17.4, hematocrit 49, platelets 292. Sodium 137, potassium 3.4, chloride 105, bicarbonate 24, BUN 10, creatinine 1.05, serum glucose 134, calcium 9.6, magnesium 2.3, total bilirubin 1.2, AST 24, ALT 43, alkaline phosphatase 90, lipase 83. TSH 1.4. [place] less than 0.2. Lyme disease IgM and IgG negative. IMAGING DATA: Chest x-ray, no acute findings. EKG: When he came in, initial EKG was sinus tachycardia at the rate of 187. ST depression in inferior and anterolateral leads. Repeat EKG, he has atrial fibrillation at rate of 81. ASSESSMENT AND PLAN: This is a 24-year-old male who presents with rapid atrial fibrillation. 1. Tachycardia with initially heart rate in 180 to 200s. Given adenosine and then started on Cardizem drip. Repeat EKG shows him in rapid atrial fibrillation and atrial flutter. Rate has improved with Cardizem drip, started on Eliquis. After talking with cardiology by ER physician, was started on Cardizem drip and Eliquis. Will Keep him n.p.o. Follow serial cardiac enzymes, echocardiogram, and await cardiology recommendations. 2. History of bipolar depression and attention deficit hyperactivity disorder. Continue his methylphenidate and lithium carbonate, Ativan p.r.n. 3. Deep venous thrombosis prophylaxis, on Eliquis. DISPOSITION: Admit to tele floor. Expect to discharge home and follow with family doctor. Level 1 full code. MTDD
[2020-03-23 04:59] LABS: Basophils # (auto) 0.02 K/uL (0-0.2); Basophils % (auto) 0.2 %; Eosinophils # (auto) 0.19 K/uL (0-0.5); Eosinophils % (auto) 2.2 %; Hematocrit (blood only) 42.6 % (42-52); Hemoglobin 15.2 g/dL (14.0-18.0); Immature Granulocytes # (auto) 0.01 K/uL (0.00-0.02); Immature Granulocytes % (auto) 0.1 %; Lymphocytes % (auto) 29.5 %; Mean Corpuscular Hemoglobin 32.1 pg (25-34); Mean Corpuscular Hgb Conc 35.7 g/dL (32-36); Mean Corpuscular Volume 89.9 fL (80-100); Mean Platelet Volume 11.6 fL (7.4-10.4); Monocytes # (auto) 0.61 K/uL (0.11-0.59); Monocytes % (auto) 6.9 %; Neutrophils # (auto) 5.38 K/uL (1.4-6.5); Neutrophils % (auto) 61.1 %; Platelet Count 204 K/uL (130-400); RDW Coefficient of Variation 12.4 % (11.5-14.5); RDW Standard Deviation 40.6 fL (36.4-46.3); Red Blood Count 4.74 M/uL (4.7-6.1); White Blood Count 8.81 K/uL (4.8-10.8)
[2020-03-23 05:24] LABS: BUN Creatinine Ratio 8.8 (10-20); Blood Urea Nitrogen 7 mg/dl (7-18); Calcium 8.5 mg/dl (8.5-10.1); Carbon Dioxide 23 mmol/L (21-32); Chloride 113 mmol/L (98-107); Creatinine Clr Calc Pharmacy 160.9 ml/min; Est GFR (African American) 144.9; Glucose 98 mg/dl (70-99); Magnesium 2.2 mg/dl (1.8-2.4); Potassium 4.2 mmol/L (3.5-5.1); Sodium 143 mmol/L (136-145)
[2020-03-23 05:30] LABS: Troponin I < 0.015 ng/ml (0-0.045)
[2020-03-23] MEDS: LITHIUM CARBONATE 300 MG TAB PO SCH ×2 (08:05→20:48)
[2020-03-23] MEDS: APIXABAN 5 MG TABLET PO SCH ×2 (08:06→20:49)
[2020-03-23 08:55] LABS: Amphetamines+Metham, Urine Neg (Neg); Barbiturates, Urine Neg (Neg); Benzodiazepine, Urine Neg (Neg); Cocaine, Urine Neg (Neg); MDMA (Ecstacy), Urine Neg (Neg); Methadone, Urine Neg (Neg); Opiate, Urine Neg (Neg); Phencyclidine, Urine Neg (Neg)
--- NOTE | 2020-03-23 09:15 | Cardiology Consultation ---
Date of Consultation March 23, 2020 Assessment & Plan (1) Bipolar depression: (2) Atrial fibrillation: The patient is currently clinically stable. He should not be placed back on the Adderall as it may have contributed to his arrhythmias. I think he is better treated with a beta-nena and I am going to start metoprolol and then discontinue his diltiazem. He should remain on the Eliquis. I will review his echocardiogram when it is completed. He is concerned about diabetes and his gl ucose is 134. I will order hemoglobin A1c. History of Present Illness Attending Physician: Gloria Weiner MD History of Present Illness This is a 24-year-old male patient with minimal past medical history however, he does have a bipolar disorder and a history of ADHD. He has been on lithium and more recently was started on Adderall. He presented to the emergency department with tachycardia. His initial presentation appeared to have flutter waves with RVR. He was then started on diltiazem by the emergency department physician and he converted to a course atrial flutter or atrial fibrillation. His heart rates are controlled today. He has no general complaints. Echocardiogram was just completed which I will review. Troponins are negative and his TSH is normal. He has no prior history of heart disease. He denies a heart murmur. No history of congenital heart disease. No previous history of cardiac arrhythmias. Allergies Allergy/AdvReac Type Severity Reaction Status Date / Time No Known Allergies Allergy Unverified 03/22/20 22:46 Home Medications Home Medications Medication Instructions Recorded Confirmed Type hydroxyzine HCl 25 - 50 mg PO HS PRN 09/10/19 03/22/20 History lithium carbonate 150 mg PO BID 09/10/19 03/22/20 History lorazepam [Ativan] 0.5 mg PO DAILY PRN 09/10/19 03/22/20 History methylphenidate HCl 18 mg PO QAM 03/22/20 03/22/20 History Patient History Medical History Anxiety (Chronic) Bipolar depression (Chronic) Manic depression (Chronic) Surgical History History of placement of ear tubes (Resolved) History of sinus surgery (Resolved) Social History Preferred Language: Kyrgyz Communication Ability: Effective Laminator Required: No Beliefs That Will Affect Care: None Current Living Situation: Family Other Information That Helps Us Care for You: No Feels Safe at Home: Yes Safety Concerns: Feels Safe At This Time Smoking Status: Unknown if ever smoked Hx Alcohol Use: No Review of Systems Review of Systems: All systems reviewed & are unremarkable except as noted in HPI & below Nothing additional to add. Physical Exam Physical Exam: General: no acute distress and stated age Head: normocephalic, no masses, lesions, tenderness or abnormalities Eyes: conjunctiva are pink and non-injected, sclera clear Neck: supple, no adenopathy, no bruits, normal jugular venous pulse, no hepatojugular reflux Chest: normal shape and normal respiratory effort Lungs: clear to auscultation and percussion Cardiac Exam: - regular rate & rhythm, no murmurs gallops or rubs - normal S1, normal S2 Pulses: 2(+) throughout Abdomen: abdomen soft, non-tender, no abnormal masses and no hepatosplenomegaly Musculoskeletal: no gait disturbance, no joint inflammation, no deforming arthritis Extremities: no edema and no cyanosis Neuro: grossly normal exam Results & Data ([facility]) Vital Signs (Past 12 Hours) Vital Signs Temp Pulse Pulse Resp BP BP Pulse Ox 03/23/20 06:00 57 L 17 102/59 L 96 03/23/20 04:00 71 20 116/59 L 97 03/23/20 02:00 69 13 113/61 95 03/23/20 01:11 36.8 C 85 20 135/75 97 03/23/20 01:03 91 H 23 135/75 99 03/23/20 00:38 67 19 127/62 98 03/23/20 00:01 69 20 97 03/23/20 00:00 78 19 119/74 97 03/22/20 23:45 79 21 117/88 99 03/22/20 23:33 84 19 130/64 98 03/22/20 23:32 81 19 130/64 98 03/22/20 23:30 79 21 98 03/22/20 23:12 88 19 104/69 97 03/22/20 23:06 85 19 104/69 03/22/20 23:00 79 12 03/22/20 22:46 82 16 05/16/20 22:30 102 H 15 148/93 H 03/22/20 22:15 190 H 27 H 03/22/20 22:00 183 H 20 131/90 100 03/22/20 21:45 188 H 19 99 03/22/20 21:31 185 H 24 134/89 100 03/22/20 21:30 189 H 25 H 100 03/22/20 21:22 188 H 14 159/90 H 100 03/22/20 21:15 197 H 28 H 100 Laboratory Results Laboratory Results - last 24 hr 03/22/20 03/22/20 03/22/20 21:10 21:10 21:10 WBC 11.78 H RBC 5.52 Hgb 17.4 Hct 49.0 MCV 88.8 MCH 31.5 MCHC 35.5 RDW Std Deviation 39.5 RDW Coeff of Anamika 12.4 Plt Count 292 MPV 11.9 H Immature Gran % (Auto) 0.3 Neut % (Auto) 68.2 Lymph % (Auto) 21.5 [place] % (Auto) 7.5 Eos % (Auto) 2.3 Baso % (Auto) 0.2 Immature Gran # (Auto) 0.03 H Neut # (Auto) 8.05 H Lymph # (Auto) 2.53 [place] # (Auto) 0.88 H Eos # (Auto) 0.27 Baso # (Auto) 0.02 Sodium 137 Potassium 3.4 L Chloride 105 Carbon Dioxide 24 Anion Gap 9.0 BUN 10 Creatinine 1.05 Est Cr Clr Drug Dosing 122.6 Est GFR ( Amer) 114.6 Est GFR (Non-Af Amer) 98.9 BUN/Creatinine Ratio 9.0 L Glucose 134 H Calcium 9.6 Magnesium 2.3 Total Bilirubin 1.2 H AST 24 ALT 43 Alkaline Phosphatase 90 Troponin I Total Protein 7.8 Albumin 4.6 Globulin 3.2 Albumin/Globulin Ratio 1.4 Lipase 83 TSH 1.470 Nasal Screen MRSA (PCR) Urine Opiates Screen Ur Methadone, Qual Urine Barbiturates Ur Phencyclidine (PCP) U Amphetamin/Meth Scrn MDMA (Ecstasy) Screen U Benzodiazepines Scrn Corn[place] Ur Cocaine Metabolite U Marijuana (THC) Screen U Marijuana THC Carboxy Drug Screen Comment Lyme Disease IgG Ab Negative Lyme Disease IgM Ab Negative 03/22/20 03/23/2020 21:10 01:35 04:46 WBC 8.81 RBC 4.74 Hgb 15.2 Hct 42.6 MCV 89.9 MCH 32.1 MCHC 35.7 RDW Std Deviation 40.6 RDW Coeff of [place] 12.4 Plt Count 204 MPV 11.6 H Immature Gran % (Auto) 0.1 Neut % (Auto) 61.1 Lymph % (Auto) 29.5 [place] % (Auto) 6.9 Eos % (Auto) 2.2 Baso % (Auto) 0.2 Immature Gran # (Auto) 0.01 Neut # (Auto) 5.38 Lymph # (Auto) 2.60 [place] # (Auto) 0.61 H Eos # (Auto) 0.19 Baso # (Auto) 0.02 Sodium Potassium Chloride Carbon Dioxide Anion Gap BUN Creatinine Est Cr Clr Drug Dosing Est GFR ( Amer) Est GFR (Non-Af Amer) BUN/Creatinine Ratio Glucose Calcium Magnesium Total Bilirubin AST ALT Alkaline Phosphatase Troponin I Total Protein Albumin Globulin Albumin/Globulin Ratio Lipase TSH Nasal Screen MRSA (PCR) Negative Urine Opiates Screen Ur Methadone, Qual Urine Barbiturates Ur Phencyclidine (PCP) U Amphetamin/Meth Scrn MDMA (Ecstasy) Screen U Benzodiazepines Scrn [place] < 0.2 L Ur Cocaine Metabolite U Marijuana (THC) Screen U Marijuana THC Carboxy Drug Screen Comment Lyme Disease IgG Ab Lyme Disease IgM Ab 03/23/20 03/23/20 03/23/20 04:46 08:18 08:18 WBC RBC Hgb Hct MCV MCH MCHC RDW Std Deviation RDW Coeff of [place]amika Plt Count MPV Immature Gran % (Auto) Neut % (Auto) Lymph % (Auto) [place] % (Auto) Eos % (Auto) Baso % (Auto) Immature Gran # (Auto) Neut # (Auto) Lymph # (Auto) [place] # (Auto) Eos # (Auto) Baso # (Auto) Sodium 143 Potassium 4.2 D Chloride 113 H Carbon Dioxide 23 Anion Gap 7.0 BUN 7 Creatinine 0.80 Est Cr Clr Drug Dosing 160.9 Est GFR ( Amer) 144.9 Est GFR (Non-Af Amer) 125.0 BUN/Creatinine Ratio 8.8 L Glucose 98 Calcium 8.5 Magnesium 2.2 Total Bilirubin AST ALT Alkaline Phosphatase Troponin I < 0.015 Total Protein Albumin Globulin Albumin/Globulin Ratio Lipase TSH Nasal Screen MRSA (PCR) Urine Opiates Screen Neg Ur Methadone, Qual Neg Urine Barbiturates Neg Ur Phencyclidine (PCP) Neg U Amphetamin/Meth Scrn Neg MDMA (Ecstasy) Screen Neg U Benzodiazepines Scrn Neg [place] Ur Cocaine Metabolite Neg U Marijuana (THC) Screen Pos H U Marijuana THC Carboxy Pending Drug Screen Comment Pending Lyme Disease IgG Ab Lyme Disease IgM Ab Medications Administered Current Inpatient Medications Acetaminophen (Tylenol) 650 mg PO Q4H PRN PRN Reason: Pain or Fever Stop: 04/22/20 01:06 Apixaban (Eliquis) 5 mg PO BID [facility] Stop: 04/22/20 08:59 Last Admin: 03/23/20 08:06 Dose: 5 mg Documented by: Diltiazem HCl 125 mg/ Dextrose 125 mls @ 5 mls/hr IV .Q24H NINA; Protocol Stop: 04/21/20 21:59 Last Titration: 03/23/20 06:56 Dose: 5 mg/hr, 5 mls/hr Documented by: Sodium Chloride (Nss 1000ml) 1,000 mls @ 75 mls/hr IV .[id number] [facility] Stop: 04/22/20 01:06 Last Admin: 03/23/20 01:15 Dose: 75 mls/hr Documented by: [place] Carbonate ([place] Carbonate) 150 mg PO BID [facility] Stop: 04/22/20 08:59 Last Admin: 03/23/20 08:05 Dose: 150 mg Documented by: Lorazepam (Ativan) 0.5 mg PO DAILY PRN PRN Reason: Anxiety Stop: 04/22/20 01:06 Miscellaneous (Order Awaiting Action) 1 ea N/A QS [facility] Stop: 04/22/20 07:59 Nitroglycerin (Nitrostat) 0.4 mg SL UD PRN PRN Reason: Chest Pain Stop: 04/22/20 01:06
[2020-03-23] MEDS ORDERED: METOPROLOL TARTRATE 25 MG TAB PO SCH (09:25)
--- NOTE | 2020-03-23 11:15 | Electrocardiogram Report ---
Test Reason : Blood Pressure : / mmHG Vent. Rate : 187 BPM Atrial Rate : 187 BPM P-R Int : 130 ms QRS Dur : 060 ms QT Int : 246 ms P-R-T Axes : 000 017 -88 degrees QTc Int : 434 ms Atrial flutter Abnormal ECG When compared with ECG of 09-MAR-2018 07:04, Vent. rate has increased BY 98 BPM Atrial flutter has replaced sinus rhythm Confirmed by Sreedhar Breaux ([id number]) on 03/23/2020 11:14:22 AM Referred By: REFERRED SELF Confirmed By:Chava Breaux
--- NOTE | 2020-03-23 11:15 | Electrocardiogram Report ---
Test Reason : Blood Pressure : / mmHG Vent. Rate : 081 BPM Atrial Rate : 375 BPM P-R Int : 000 ms QRS Dur : 082 ms QT Int : 328 ms P-R-T Axes : 000 004 040 degrees QTc Int : 381 ms Atrial fibrillation Abnormal ECG When compared with ECG of 22-MAR-2020 21:24, (unconfirmed) Atrial fibrillation has replaced Sinus rhythm Vent. rate has decreased BY [address] no longer depressed in Inferior leads ST no longer depressed in Anterolateral leads Nonspecific T wave abnormality, improved in Lateral leads Confirmed by Sreedhar Breaux ([id number]) on 03/23/2020 11:15:00 AM Referred By: REFERRED SELF Confirmed By:Chava Breaux
--- NOTE | 2020-03-23 11:47 | Hospitalist Progress Note ---
Date of Service March 23, 2020 Assessment & Plan (1) Atrial fibrillation: Admitted with atrial fibrillation/flutter with RVR Has been on intravenous Cardizem drip Rate is reasonably controlled and is running around 100 Serial cardiac enzymes are negative for any ACS Echo has been pending He has been on lithium and methylphenidate for needed for his manic depression- not sure if it has anything to do with her atrial fibrillation Appreciate cardiology input and recommendation Beta-nena has been added Wean off Cardizem eventually If the rate is reasonably controlled by tomorrow, he may be going home. (2) Manic depression: Controlled now Has been on PPI and methylphenidate (3) Bipolar depression: Controlled now DVT prophylax Has been on Eliquis Likely discharge tomorrow if the heart rate is controlled Admission and Anticipated Discharge Date Admission Date: March 23, 2020 Subjective The patient was seen and examined in ICU He was admitted with Aureliano johnson with RVR with palpitation and dizziness His rate is controlled with medication and he is feeling much better Denies any chest pain and/or palpitation and no shortness of breath at rest No nausea and or vomiting Review of Systems Review of Systems: All systems reviewed and are unremarkable except as noted below Cardiovascular: + palpitations; no chest pain, no dyspnea and no lightheadedness Gastrointestinal: no abdominal pain Musculoskeletal: No acute pain in any joints Psychiatric: no behavioral changes and no depression Physical Exam Physical Exam: Lying in bed comfortably Constitutional: well developed and well nourished; no acute distress and not ill appearing Eyes: PERRL, conjunctivae normal, anicteric sclerae ENMT: external ear and nose normal, oropharynx normal Neck: trachea midline, no thyromegaly Respiratory: normal respiratory effort; no respiratory distress Auscultation: lungs clear to auscultation bilaterally Cardiovascular: Rate/Rhythm: + tachycardic and + irregularly irregular Heart Sounds: no murmur Extremities: no edema Gastrointestinal (Abdomen): Inspection/Auscultation: abdomen normal to inspection Percussion/Palpation: abdomen soft; abdomen nontender Musculoskeletal: No acute arthritis in any joints Neurologic: moves all extremities; no focal motor deficits Lymphatic: no cervical or axillary lymphadenopathy Results & Data Results & Data ([facility]) Vital Signs (Past 12 Hours) Vital Signs Temp Pulse Pulse Resp BP BP Pulse Ox 03/23/20 11:36 36.9 C 99 H 19 106/54 L 98 05/17/20 11:30 94 H 19 03/23/20 11:15 73 0 L 03/23/20 11:00 136 H 13 03/23/20 10:45 76 15 03/23/20 10:30 75 18 03/23/20 10:15 74 17 03/23/20 10:00 68 12 03/23/20 09:45 103 H 20 03/23/20 09:30 110 H 24 03/23/20 09:15 93 H 18 03/23/20 09:00 79 21 03/23/20 08:45 79 21 03/23/20 08:30 94 H 18 03/23/20 08:15 124 H 20 03/23/20 08:08 143 H 21 122/65 03/23/20 07:30 81 28 H 97 03/23/20 07:15 78 18 98 03/23/20 07:00 72 14 96/61 L 97 03/23/20 06:45 58 L 17 98 03/23/20 06:00 57 L 17 102/59 L 96 03/23/20 04:00 71 20 116/59 L 97 03/23/20 02:00 69 13 113/61 95 03/23/20 01:11 36.8 C 85 20 135/75 97 03/23/20 01:03 91 H 23 135/75 99 03/23/20 00:38 67 19 127/62 98 03/23/20 00:01 69 20 97 03/23/20 00:00 78 19 119/74 97 03/22/20 23:45 79 21 117/88 99 Laboratory Results Short CBC 03/22/20 03/23/20 Range/Units 21:10 04:46 WBC 11.78 H 8.81 (4.8-10.8) K/uL Hgb 17.4 15.2 (14.0-18.0) g/dL Hct 49.0 42.6 (42-52) % Plt Count 292 204 (130-400) K/uL BMP 03/22/20 03/23/20 21:10 04:46 Sodium 137 143 Potassium 3.4 L 4.2 D Chloride 105 113 H Carbon Dioxide 24 23 BUN 10 7 Creatinine 1.05 0.80 Glucose 134 H 98 Calcium 9.6 8.5 Cardiac Enzymes 03/23/20 03/23/20 Range/Units 04:46 10:47 Troponin I < 0.015 < 0.015 (0-0.045) ng/ml Liver Function 03/22/20 Range/Units 21:10 Total Bilirubin 1.2 H (0.2-1) mg/dl AST 24 (15-37) U/L ALT 43 (12-78) U/L Alkaline Phosphatase 90 (45-117) U/L Albumin 4.6 (3.4-5.0) gm/dl Medications Administered Current Inpatient Medications Acetaminophen (Tylenol) 650 mg PO Q4H PRN PRN Reason: Pain or Fever Stop: 04/22/20 01:06 Apixaban (Eliquis) 5 mg PO BID [facility] Stop: 04/22/20 08:59 Last Admin: 03/23/20 08:06 Dose: 5 mg Documented by: Diltiazem HCl 125 mg/ Dextrose 125 mls @ 5 mls/hr IV .Q24H [facility]; Protocol Stop: 04/21/20 21:59 Last Titration: 03/23/20 10:59 Dose: Infused Documented by: [place] Carbonate ([place] Carbonate) 150 mg PO BID [facility] Stop: 04/22/20 08:59 Last Admin: 03/23/20 08:05 Dose: 150 mg Documented by: Lorazepam (Ativan) 0.5 mg PO DAILY PRN PRN Reason: Anxiety Stop: 04/22/20 01:06 Metoprolol Tartrate (Lopressor) 12.5 mg PO BID [facility] Stop: 04/22/20 09:24 Last Admin: 03/23/20 09:49 Dose: 12.5 mg Documented by: Nitroglycerin (Nitrostat) 0.4 mg SL UD PRN PRN Reason: Chest Pain Stop: 04/22/20 01:06
[2020-03-23] MEDS: METOPROLOL TARTRATE 25 MG TAB PO SCH ×2 (18:00→20:49)
[2020-03-24] MEDS: dilTIAZem HCL 125 MG in DEXTROSE 5% 100 ML IV SCH (00:30)
[2020-03-24] MEDS: LITHIUM CARBONATE 300 MG TAB PO SCH ×2 (01:51→08:20)
[2020-03-24 08:12] LABS: Estimated Average Glucose 100 mg/dl; Hemoglobin A1C 5.1 % (4.5-5.6)
[2020-03-24] MEDS: METOPROLOL TARTRATE 25 MG TAB PO SCH ×3 (08:19→20:45)
[2020-03-24] MEDS: APIXABAN 5 MG TABLET PO SCH ×2 (08:19→20:46)
[2020-03-24] MEDS: NICOTINE 14 MG/24 HR PATCH TD SCH (09:33)
--- NOTE | 2020-03-24 10:52 | Cardiology Progress Note ---
Date of Service March 24, 2020 Assessment & Plan (1) Bipolar depression: (2) Atrial fibrillation: The patient has persistent atrial fibrillation. At times his heart rates are high especially before he receives his next dose of metoprolol. I will increase the metoprolol to 25 mg 3 times daily. In regard to cardioversion, this patient presented fairly quickly after the start of his symptoms due to the atrial fibrillation. He was almost immediately anticoagulated or at least well within the 48 hours recommended by guidelines for anticoagulation and cardioversion. His transthoracic echo is within normal limits. The patient's [place] V[place]or is 0. I believe it is reasonable for us to proceed directly to cardioversion prior to discharge without a trans-esophageal echocardiogram. I will arrange for this procedure tomorrow. I explained to the patient the risk, benefit and intent of the cardioversion tomorrow. I also explained to him the low likelihood of thrombus formation due to his immediate anticoagulation and low risk score. He is willing to proceed and would like to have the cardioversion only which I believe is reasonable. Subjective The patient has no new complaints today. Unfortunately, he remains in atrial fibrillation. At times he has high heart rates especially this morning before he received his metoprolol dose. His heart rates are better controlled now. He denies shortness of breath, dizziness or lightheadedness. Review of Systems Review of Systems: All systems reviewed & are unremarkable except as noted in HPI & below Nothing additional to add. Physical Exam Physical Exam: General: no acute distress and stated age Head: normocephalic, no masses, lesions, tenderness or abnormalities Eyes: conjunctiva are pink and non-injected, sclera clear Neck: supple, no adenopathy, no bruits, normal jugular venous pulse, no hepatojugular reflux Chest: normal shape and normal respiratory effort Lungs: clear to auscultation and percussion Cardiac Exam: -Irregular rate & rhythm, no murmurs gallops or rubs - normal S1, normal S2 Pulses: 2(+) throughout Abdomen: abdomen soft, non-tender, no abnormal masses and no hepatosplenomegaly Musculoskeletal: no gait disturbance, no joint inflammation, no deforming art hritis Extremities: no edema and no cyanosis Neuro: grossly normal exam Results & Data Vital Signs (Past 12 Hours) Vital Signs Temp Pulse Pulse Resp BP Pulse Ox 03/24/20 07:21 36.6 C 82 19 122/73 98 05/18/20 03:17 36.4 C L 101 H 16 107/73 98 03/24/20 00:00 88 03/23/20 23:52 36.6 C 77 16 95/59 L 98 Laboratory Results Laboratory Results - last 24 hr 03/23/20 03/24/20 10:47 06:11 Estimat Average Glucose 100 Hemoglobin A1c 5.1 Troponin I < 0.015 Medications Administered Current Inpatient Medications Acetaminophen (Tylenol) 650 mg PO Q4H PRN PRN Reason: Pain or Fever Stop: 04/22/20 01:06 Apixaban (Eliquis) 5 mg PO BID [facility] Stop: 04/22/20 08:59 Last Admin: 03/24/20 08:19 Dose: 5 mg Documented by: [place] Carbonate ([place] Carbonate) 150 mg PO BID [facility] Stop: 04/22/20 08:59 Last Admin: 03/24/20 08:20 Dose: 150 mg Documented by: Lorazepam (Ativan) 0.5 mg PO DAILY PRN PRN Reason: Anxiety Stop: 04/22/20 01:06 Metoprolol Tartrate (Lopressor) 25 mg PO TID [facility] Stop: 04/23/20 13:59 Miscellaneous (Remove Nicoderm Patch) 1 ea N/A [id number] [facility] Stop: 04/23/20 08:58 Nicotine (Nicoderm Cq) 14 mg TD QAM [facility] Stop: 04/23/20 08:59 Last Admin: 03/24/20 09:33 Dose: 14 mg Documented by: Nitroglycerin (Nitrostat) 0.4 mg SL UD PRN PRN Reason: Chest Pain Stop: 04/22/20 01:06
--- NOTE | 2020-03-24 13:59 | Hospitalist Progress Note ---
Date of Service March 24, 2020 Assessment & Plan (1) Atrial fibrillation: Admitted with atrial fibrillation/flutter with RVR Has been on intravenous Cardizem drip Rate is reasonably controlled and is running around 100 Serial cardiac enzymes are negative for any ACS Echo has been pending He has been on lithium and methylphenidate for needed for his manic depression- not sure if it has anything to do with her atrial fibrillation Appreciate cardiology input and recommendation Beta-nena has been added Cardizem has been discontinued Beta-nena doses have been increased to 25 mg 3 times daily Rate seems to be reasonably controlled Will have elective cardioversion tomorrow (2) Manic depression: Controlled now Has been on PPI and methylphenidate (3) Bipolar depression: Controlled now Has been getting lithium once a day not twice daily DVT prophylax Has been on Eliquis Will have cardioversion tomorrow Likely home after cardioversion Admission and Anticipated Discharge Date Admission Date: March 23, 2020 Subjective The patient was seen and examined in ICU He was admitted with Aureliano johnson with RVR with palpitation and dizziness His rate is controlled with medication and he is feeling much better Denies any chest pain and/or palpitation and no shortness of breath at rest No nausea and or vomiting 03/24/2020 The patient was seen and examined in telemetry unit He complains to have minimal palpitation but has dizziness with ambulation We will get orthostatic vitals We will have elective cardioversion tomorrow Review of Systems Review of Systems: All systems reviewed and are unremarkable except as noted below Cardiovascular: + palpitations; no chest pain, no dyspnea and no lightheadedness Musculoskeletal: No acute pain in any joints Physical Exam 2 Physical Exam: Lying in bed comfortably Constitutional: well developed and well nourished; no acute distress and not ill appearing Eyes: PERRL, conjunctivae normal, anicteric sclerae ENMT: external ear and nose normal, oropharynx normal Neck: trachea midline, no thyromegaly Respiratory: normal respiratory effort; no respiratory distress Auscultation: lungs clear to auscultation bilaterally Cardiovascular: Rate/Rhythm: + tachycardic and + irregularly irregular Heart Sounds: no murmur Extremities: no edema Gastrointestinal (Abdomen): Inspection/Auscultation: abdomen normal to inspe ction Percussion/Palpation: abdomen soft; abdomen nontender Musculoskeletal: No acute arthritis involving any joints Neurologic: moves all extremities; no focal motor deficits Alert, awake and oriented x3. Lymphatic: no cervical or axillary lymphadenopathy Results & Data Results & Data ([facility]) Vital Signs (Past 12 Hours) Vital Signs Temp Pulse Resp BP Pulse Ox 03/24/20 13:06 103 H 125/74 03/24/20 11:23 36.7 C 104 H 19 111/73 97 03/24/20 07:21 36.6 C 82 19 122/73 98 03/24/20 03:17 36.4 C L 101 H 16 107/73 98 Medications Administered Current Inpatient Medications Acetaminophen (Tylenol) 650 mg PO Q4H PRN PRN Reason: Pain or Fever Stop: 04/22/20 01:06 Apixaban (Eliquis) 5 mg PO BID [facility] Stop: 04/22/20 08:59 Last Admin: 03/24/20 08:19 Dose: 5 mg Documented by: Sodium Chloride (Nss) 500 mls @ 80 mls/hr IV .Q6H15M [facility] Stop: 04/23/20 23:54 [place] Carbonate ([place] Carbonate) 150 mg PO DAILY [facility] Stop: 04/24/20 08:59 Lorazepam (Ativan) 0.5 mg PO DAILY PRN PRN Reason: Anxiety Stop: 04/22/20 01:06 Metoprolol Tartrate (Lopressor) 25 mg PO TID [facility] Stop: 04/23/20 13:59 Last Admin: 03/24/20 13:07 Dose: 25 mg Documented by: Miscellaneous (Remove Nicoderm Patch) 1 ea N/A DAILY@0859 [facility] Stop: 04/23/20 08:58 Last Admin: 03/24/20 11:14 Dose: Not Given Documented by: Nicotine (Nicoderm Cq) 14 mg TD QAM [facility] Stop: 04/23/20 08:59 Last Admin: 03/24/20 09:33 Dose: 14 mg Documented by: Nitroglycerin (Nitrostat) 0.4 mg SL UD PRN PRN Reason: Chest Pain Stop: 04/22/20 01:06
--- NOTE | 2020-03-24 15:12 | Anesthesiology Consultation ---
Date of Service March 24, 2020 Assessment & Plan (1) Encounter for pre-operative examination: Chart Review Chart Review: Acceptable Risk for Surgery and Patient NOT seen in Pre Admission Testing Consults Requested none History Surgery Operation Date: 03/25/20 07:45 Proposed Procedures p Cardioversion - Alpesh Torres DO Height/Weight Height: 6 ft 1 in Weight: 85.1 kg Allergies Allergy/AdvReac Type Severity Reaction Status Date / Time No Known Allergies Allergy Unverified 03/22/20 22:46 Medications Home Medications Medication Instructions Recorded Confirmed Last Taken hydroxyzine HCl 25 - 50 mg PO HS PRN 09/10/19 03/22/20 Unknown lithium carbonate 150 mg PO BID 09/10/19 03/22/20 Unknown lorazepam [Ativan] 0.5 mg PO DAILY PRN 09/10/19 03/22/20 Unknown methylphenidate HCl 18 mg PO QAM 03/22/20 03/22/20 Unknown Active Medications Generic Name Dose Route Start Last Admin Trade Name Freq PRN Reason Stop Dose Admin Apixaban 5 mg 03/23/20 09:00 03/24/20 08:19 Eliquis PO 04/22/20 08:59 5 mg BID [facility] Administration Metoprolol Tartrate 25 mg 03/24/20 14:00 03/24/20 13:07 Lopressor PO 04/23/20 13:59 25 mg TID NINA Administration Miscellaneous 1 ea 03/24/20 08:59 03/24/20 11:14 Remove Nicoderm Patch N/A 04/23/20 08:58 Not Given DAILY@0859 [facility] Nicotine 14 mg 03/24/20 09:00 03/24/20 09:33 Nicoderm Cq TD 04/23/20 08:59 14 mg QAM [facility] Administration Past Medical History Medical History Anxiety (Chronic) Bipolar depression (Chronic) Manic depression (Chronic) Past Surgical History Surgical History History of placement of ear tubes (Resolved) History of sinus surgery (Resolved) Social History Smoking Status: Unknown if ever smoked Hx Alcohol Use: No Physical Exam Vital Signs Last Vital Signs Temp 36.6 C 03/24/20 15:08 Pulse 85 03/24/20 15:08 Resp 20 03/24/20 15:08 BP 108/75 03/24/20 15:08 Pulse Ox 96 03/24/20 15:08 Testing Laboratory Results 03/23/20 04:46 03/23/20 04:46 Hemoglobin A1c 5.1 % (4.5-5.6) 03/24/20 06:11 Electrocardiogram Date: 03/24/20 Findings: + AFIB @ (81) Atrial fibrillation Abnormal ECG When compared with ECG of 22-MAR-2020 22:26, No significant change was found Echocardiogram Date: 03/23/20 LV Function: normal (55-60%) LV normal size. RV normal. NO valvular pathology.
--- NOTE | 2020-03-24 16:57 | Electrocardiogram Report ---
Test Reason : Blood Pressure : / mmHG Vent. Rate : 081 BPM Atrial Rate : 101 BPM P-R Int : 000 ms QRS Dur : 070 ms QT Int : 312 ms P-R-T Axes : 000 045 051 degrees QTc Int : 362 ms Atrial fibrillation Abnormal ECG When compared with ECG of 22-MAR-2020 22:26, No significant change was found Confirmed by Sreedhar Breaux ([id number]) on 03/24/2020 4:56:33 PM Referred By: REFERRED SELF Confirmed By:Chava Breaux
--- NOTE | 2020-03-24 17:07 | Electrocardiogram Report ---
Test Reason : Blood Pressure : / mmHG Vent. Rate : 200 BPM Atrial Rate : 197 BPM P-R Int : 000 ms QRS Dur : 080 ms QT Int : 226 ms P-R-T Axes : 000 046 072 degrees QTc Int : 412 ms Supraventricular tachycardia appears sinus Otherwise normal ECG When compared with ECG of 09-MAR-2018 07:04, Vent. rate has increased BY 111 BPM Non-specific change in ST segment in Lateral leads Nonspecific T wave abnormality now evident in Lateral leads Confirmed by Sreedhar Breaux ([id number]) on 03/24/2020 5:06:54 PM Referred By: REFERRED SELF Confirmed By:Chava Breaux
[2020-03-25] MEDS: SODIUM CHLORIDE 0.9% 500 ML IV SCH ×2 (00:33→06:09)
[2020-03-25] MEDS ORDERED: METOPROLOL TARTRATE 1 MG/ML VIAL IV STA ×3 (03:44→07:51)
[2020-03-25] MEDS ORDERED: PROPOFOL IV EMULSION 10 MG/ML 20 ML VIAL IV ONE (07:16)
[2020-03-25] MEDS ORDERED: METOPROLOL TARTRATE 1 MG/ML VIAL IV ONE (07:43)
[2020-03-25 07:54] LABS: BUN Creatinine Ratio 13.6 (10-20); Calcium 9.1 mg/dl (8.5-10.1); Creatinine Clr Calc Pharmacy 134.1 ml/min; Est GFR (African American) 127.7; Est GFR (Non-African American) 110.2; Magnesium 2.2 mg/dl (1.8-2.4); Potassium 4.2 mmol/L (3.5-5.1)
--- NOTE | 2020-03-25 08:06 | Cardioversion ---
Date of Service March 25, 2020 Electrical Cardioversion Rpt Electrical Cardioversion Report After informed consent was obtained the patient was given sedation by anesthesia and then received 300 J of energy converting him to normal sinus rhythm. Patient was successfully recovered and then returned to his room in stable condition.
--- NOTE | 2020-03-25 08:08 | Anesthesiology Progress Note ---
Date of Service March 25, 2020 Anesthesia Post Procedure Vital Signs Vital Signs: Temp Pulse Pulse Resp BP BP BP 03/25/20 07:53 153 H 127/81 03/25/20 07:51 151 H 121/87 03/25/20 07:46 218 H 218 H 118/81 118/81 03/25/20 07:30 94 H 03/25/20 07:24 175 H 17 118/81 03/25/20 04:12 100 H 120/82 03/25/20 03:56 100 H 125/87 03/25/20 03:36 36.7 C 100 H 17 125/87 03/25/20 00:00 36.5 C 79 82 16 132/93 03/24/20 18:37 36.6 C 84 22 103/61 03/24/20 15:08 36.6 C 85 20 108/75 03/24/20 13:06 103 H 125/74 03/24/20 11:23 36.7 C 104 H 19 111/73 Pulse Ox 03/25/20 07:53 03/25/20 07:51 03/25/20 07:46 03/25/20 07:30 03/25/20 07:24 100 03/25/20 04:12 03/25/20 03:56 03/25/20 03:36 97 03/25/20 00:00 100 03/24/20 18:37 99 03/24/20 15:08 96 03/24/20 13:06 03/24/20 11:23 97 Transfer of Care Handoff Completed per policy Notes Mental Status: alert / awake / arousable and participated in evaluation Patient Amnestic to Procedure: Yes Nausea / Vomiting: adequately controlled Pain: adequately controlled Airway Patency, RR, SpO2: stable & adequate BP & HR: stable & adequate Hydration State: stable & adequate Anesthetic Complications: no major complications apparent and Pt Satisfied with anesthetic care
[2020-03-25] MEDS ORDERED: LITHIUM CARBONATE 300 MG TAB PO SCH (09:00)
[2020-03-25] MEDS: METOPROLOL TARTRATE 25 MG TAB PO SCH ×2 (09:24→14:24)
[2020-03-25] MEDS: NICOTINE 14 MG/24 HR PATCH TD SCH (09:25)
[2020-03-25] MEDS: APIXABAN 5 MG TABLET PO SCH (09:25)
[2020-03-25 10:39] LABS: Basophils # (auto) 0.02 K/uL (0-0.2); Basophils % (auto) 0.2 %; Eosinophils # (auto) 0.38 K/uL (0-0.5); Eosinophils % (auto) 4.7 %; Hemoglobin 18.2 g/dL (14.0-18.0); Immature Granulocytes # (auto) 0.02 K/uL (0.00-0.02); Immature Granulocytes % (auto) 0.2 %; Lymphocytes # (auto) 2.89 K/uL (1.2-3.4); Lymphocytes % (auto) 35.4 %; Mean Corpuscular Hemoglobin 31.8 pg (25-34); Mean Corpuscular Hgb Conc 35.7 g/dL (32-36); Mean Corpuscular Volume 89.2 fL (80-100); Mean Platelet Volume 11.8 fL (7.4-10.4); Monocytes # (auto) 0.77 K/uL (0.11-0.59); Monocytes % (auto) 9.4 %; Neutrophils # (auto) 4.08 K/uL (1.4-6.5); Neutrophils % (auto) 50.1 %; Platelet Count 229 K/uL (130-400); RDW Coefficient of Variation 12.5 % (11.5-14.5); RDW Standard Deviation 40.2 fL (36.4-46.3); Red Blood Count 5.72 M/uL (4.7-6.1); White Blood Count 8.16 K/uL (4.8-10.8)
--- NOTE | 2020-03-25 10:50 | Hospitalist Progress Note ---
Date of Service March 25, 2020 Assessment & Plan (1) Atrial fibrillation: Admitted with atrial fibrillation/flutter with RVR Has been on intravenous Cardizem drip Rate is reasonably controlled and is running around 100 Serial cardiac enzymes are negative for any ACS Echo has been pending He has been on lithium and methylphenidate for needed for his manic depression- not sure if it has anything to do with her atrial fibrillation Appreciate cardiology input and recommendation Beta-nena has been added Cardizem has been discontinued Beta-nena doses have been increased to 25 mg 3 times daily Status post elective cardioversion this morning 03/25/2020 Denies any more symptoms of palpitation and dizziness with ambulation He will be discharged home this afternoon (2) Manic depression: Controlled now Has been on PPI and methylphenidate (3) Bipolar depression: Controlled now Has been getting lithium once a day not twice daily DVT prophylax Has been on Eliquis Will have PCP appointment in 7 days and [facility] cardiology will call him for an appointment Admission and Anticipated Discharge Date Admission Date: March 23, 2020 Subjective The patient was seen and examined in ICU He was admitted with Aureliano johnson with RVR with palpitation and dizziness His rate is controlled with medication and he is feeling much better Denies any chest pain and/or palpitation and no shortness of breath at rest No nausea and or vomiting 03/24/2020 The patient was seen and examined in telemetry unit He complains to have minimal palpitation but has dizziness with ambulation We will get orthostatic vitals We will have elective cardioversion tomorrow 03/25/2020 Plan the patient was seen and examined in telemetry unit He is status post elective cardioversion Does not have any more symptoms as he was having before Review of Systems Review of Systems: All systems reviewed and are unremarkable except as noted below Cardiovascular: no chest pain, no dyspnea, no palpitations and no lightheadedness Musculoskeletal: No acute pain in any joints Physical Exam Physical Exam: Lying in bed comfortably Constitutional: well developed and well nourished; no acute distress and not ill appearing Eyes: PERRL, conjunctivae normal, anicteric sclerae ENMT: external ear and nose normal, oropharynx normal Neck: trachea midline, no thyromegaly Respiratory: normal respiratory effort; no respiratory distress Auscultation: lungs clear to auscultation bilaterally Cardiovascular: Rate/Rhythm: regular rate, regular rhythm and + irregularly irregular Heart Sounds: no murmur Extremities: no edema Gastrointestinal (Abdomen): Inspection/Auscultation: abdomen normal to inspection Percussion/Palpation: abdomen soft; abdomen nontender Musculoskeletal: No acute arthritis in any joints Neurologic: moves all extremities; no focal motor deficits Lymphatic: no cervical or axillary lymphadenopathy Results & Data Results & Data ([facility]) Vital Signs (Past 12 Hours) Vital Signs Temp Pulse Pulse Resp BP BP BP 03/25/20 08:30 80 20 107/68 03/25/20 08:15 86 20 105/62 03/25/20 08:05 93 H 20 109/78 03/25/20 07:53 153 H 127/81 03/25/20 07:51 151 H 121/87 03/25/20 07:46 218 H 218 H 118/81 118/81 03/25/20 07:30 94 H 03/25/20 07:24 175 H 17 118/81 03/25/20 04:12 100 H 120/82 03/25/20 03:56 100 H 125/87 03/25/20 03:36 36.7 C 100 H 17 125/87 03/25/20 00:00 36.5 C 79 82 16 132/93 Pulse Ox 03/25/20 08:30 96 03/25/20 08:15 97 03/25/20 08:05 99 03/25/20 07:53 03/25/20 07:51 03/25/20 07:46 03/25/20 07:30 03/25/20 07:24 100 03/25/20 04:12 03/25/20 03:56 03/25/20 03:36 97 03/25/20 00:00 100 Laboratory Results Short CBC 03/25/20 Range/Units 06:54 WBC 8.16 (4.8-10.8) K/uL Hgb 18.2 H (14.0-18.0) g/dL Hct 51.0 (42-52) % Plt Count 229 (130-400) K/uL BMP 03/25/20 06:54 Sodium 143 Potassium 4.2 Chloride 109 H Carbon Dioxide 27 BUN 13 Creatinine 0.96 Glucose 92 Calcium 9.1 Medications Administered Current Inpatient Medications Acetaminophen (Tylenol) 650 mg PO Q4H PRN PRN Reason: Pain or Fever Stop: 04/22/20 01:06 Apixaban (Eliquis) 5 mg PO BID [facility] Stop: 04/22/20 08:59 Last Admin: 03/25/20 09:25 Dose: 5 mg Documented by: Hydroxyzine HCl (Vistaril) 25 mg PO HSZ PRN PRN Reason: Sleep Stop: 04/23/20 14:04 Last Admin: 03/24/20 20:46 Dose: 12.5 mg Documented by: Sodium Chloride (Nss) 500 mls @ 80 mls/hr IV .Q6H15M [facility] Stop: 04/23/20 23:54 Last Admin: 03/25/20 06:09 Dose: 80 mls/hr Documented by: [place] Carbonate ([place] Carbonate) 150 mg PO DAILY [facility] Stop: 04/24/20 08:59 Last Admin: 03/25/20 09:25 Dose: 150 mg Documented by: Lorazepam (Ativan) 0.5 mg PO DAILY PRN PRN Reason: Anxiety Stop: 04/22/20 01:06 Metoprolol Tartrate (Lopressor) 25 mg PO TID [facility] Stop: 04/23/20 13:59 Last Admin: 03/25/20 09:24 Dose: 25 mg Documented by: Miscellaneous (Remove Nicoderm Patch) 1 ea N/A DAILY@0859 [facility] Stop: 04/23/20 08:58 Last Admin: 03/25/20 09:25 Dose: 1 ea Documented by: Nicotine (Nicoderm Cq) 14 mg TD QAM [facility] Stop: 04/23/20 08:59 Last Admin: 03/25/20 09:25 Dose: 14 mg Documented by: Nitroglycerin (Nitrostat) 0.4 mg SL UD PRN PRN Reason: Chest Pain Stop: 04/22/20 01:06
--- NOTE | 2020-03-25 11:03 | Cardiology Progress Note ---
Date of Service March 25, 2020 Assessment & Plan (1) Bipolar depression: (2) Atrial fibrillation: The patient was successfully cardioverted this morning. He should return home on his current dose of metoprolol as well as Eliquis. He should not be on aspirin daily. I have arranged follow-up with our clinic in 1 to 2 weeks. He can return to work later this week. Subjective The patient was successfully cardioverted this morning. He is maintaining sinus rhythm. Review of Systems Review of Systems: All systems reviewed & are unremarkable except as noted in HPI & below Nothing additional to add Physical Exam Physical Exam: General: no acute distress and stated age Head: normocephalic, no masses, lesions, tenderness or abnormalities Eyes: conjunctiva are pink and non-injected, sclera clear Neck: supple, no adenopathy, no bruits, normal jugular venous pulse, no hepatojugular reflux Chest: normal shape and normal respiratory effort Lungs: clear to auscultation and percussion Cardiac Exam: - regular rate & rhythm, no murmurs gallops or rubs - normal S1, normal S2 Pulses: 2(+) throughout Abdomen: abdomen soft, non-tender, no abnormal masses and no hepatosplenomegaly Musculoskeletal: no gait disturbance, no joint inflammation, no deforming arthritis Extremities: no edema and no cyanosis Neuro: grossly normal exam Results & Data Vital Signs (Past 12 Hours) Vital Signs Temp Pulse Pulse Resp BP BP BP 03/25/20 08:30 80 20 107/68 03/25/20 08:15 86 20 105/62 03/25/20 08:05 93 H 20 109/78 03/25/20 07:53 153 H 127/81 03/25/20 07:51 151 H 121/87 03/25/20 07:46 218 H 218 H 118/81 118/81 03/25/20 07:30 94 H 03/25/20 07:24 175 H 17 118/81 03/25/20 04:12 100 H 120/82 03/25/20 03:56 100 H 125/87 03/25/20 03:36 36.7 C 100 H 17 125/87 03/25/20 00:00 36.5 C 79 82 16 132/93 Pulse Ox 03/25/20 08:30 96 03/25/20 08:15 97 03/25/20 08:05 99 03/25/20 07:53 03/25/20 07:51 03/25/20 07:46 03/25/20 07:30 03/25/20 07:24 100 03/25/20 04:12 03/25/20 03:56 03/25/20 03:36 97 03/25/20 00:00 100 Laboratory Results Laboratory Results - last 24 hr 03/25/20 03/25/20 06:54 06:54 WBC 8.16 RBC 5.72 Hgb 18.2 H Hct 51.0 MCV 89.2 MCH 31.8 MCHC 35.7 RDW Std Deviation 40.2 RDW Coeff of Anamika 12.5 Plt Count 229 MPV 11.8 H Immature Gran % (Auto) 0.2 Neut % (Auto) 50.1 Lymph % (Auto) 35.4 [place] % (Auto) 9.4 Eos % (Auto) 4.7 Baso % (Auto) 0.2 Immature Gran # (Auto) 0.02 Neut # (Auto) 4.08 Lymph # (Auto) 2.89 [place] # (Auto) 0.77 H Eos # (Auto) 0.38 Baso # (Auto) 0.02 Sodium 143 Potassium 4.2 Chloride 109 H Carbon Dioxide 27 Anion Gap 7.0 BUN 13 Creatinine 0.96 Est Cr Clr Drug Dosing 134.1 Est GFR ( Amer) 127.7 Est GFR (Non-Af Amer) 110.2 BUN/Creatinine Ratio 13.6 Glucose 92 Calcium 9.1 Magnesium 2.2 Medications Administered Current Inpatient Medications Acetaminophen (Tylenol) 650 mg PO Q4H PRN PRN Reason: Pain or Fever Stop: 04/22/20 01:06 Apixaban (Eliquis) 5 mg PO BID [facility] Stop: 04/22/20 08:59 Last Admin: 03/25/20 09:25 Dose: 5 mg Documented by: Hydroxyzine HCl (Vistaril) 25 mg PO HSZ PRN PRN Reason: Sleep Stop: 04/23/20 14:04 Last Admin: 03/24/20 20:46 Dose: 12.5 mg Documented by: Sodium Chloride (Nss) 500 mls @ 80 mls/hr IV .Q6H15M [facility] Stop: 04/23/20 23:54 Last Admin: 03/25/20 06:09 Dose: 80 mls/hr Documented by: [place] Carbonate ([place] Carbonate) 150 mg PO DAILY [facility] Stop: 04/24/20 08:59 Last Admin: 03/25/20 09:25 Dose: 150 mg Documented by: Lorazepam (Ativan) 0.5 mg PO DAILY PRN PRN Reason: Anxiety Stop: 04/22/20 01:06 Metoprolol Tartrate (Lopressor) 25 mg PO TID [facility] Stop: 04/23/20 13:59 Last Admin: 03/25/20 09:24 Dose: 25 mg Documented by: Miscellaneous (Remove Nicoderm Patch) 1 ea N/A DAILY@0859 [facility] Stop: 04/23/20 08:58 Last Admin: 03/25/20 09:25 Dose: 1 ea Documented by: Nicotine (Nicoderm Cq) 14 mg TD QAM [facility] Stop: 04/23/20 08:59 Last Admin: 03/25/20 09:25 Dose: 14 mg Documented by: Nitroglycerin (Nitrostat) 0.4 mg SL UD PRN PRN Reason: Chest Pain Stop: 04/22/20 01:06
--- NOTE | 2020-03-25 15:50 | Electrocardiogram Report ---
Test Reason : Blood Pressure : / mmHG Vent. Rate : 108 BPM Atrial Rate : 054 BPM P-R Int : 000 ms QRS Dur : 078 ms QT Int : 258 ms P-R-T Axes : 000 045 043 degrees QTc Int : 345 ms Atrial fibrillation with rapid ventricular response Abnormal ECG When compared with ECG of 24-MAR-2020 06:33, No significant change was found Confirmed by Sreedhar Breaux ([id number]) on 03/25/2020 3:50:06 PM Referred By: REFERRED SELF Confirmed By:Chava Breaux
--- NOTE | 2020-03-25 15:52 | Electrocardiogram Report ---
Test Reason : Blood Pressure : / mmHG Vent. Rate : 097 BPM Atrial Rate : 097 BPM P-R Int : 134 ms QRS Dur : 080 ms QT Int : 322 ms P-R-T Axes : 076 030 057 degrees QTc Int : 408 ms Normal sinus rhythm Normal ECG When compared with ECG of 25-MAR-2020 07:08, (unconfirmed) Sinus rhythm has replaced Atrial fibrillation QT has lengthened Confirmed by Sreedhar Breaux ([id number] on 03/25/2020 3:51:31 PM Referred By: REFERRED SELF Confirmed By:Chava Breaux
[2020-03-26 02:10] LABS: Marijuana Quant, GCMS Urine 659 ng/mL (<5)
--- NOTE | 2020-04-01 09:28 | Discharge Summary ---
Date of Service April 01, 2020 Admission HPI Per Admitting Provider DICTATED BY: Trevon Powers MD DATE OF ADMISSION: 03/23/2020 CHIEF COMPLAINT: Rapid AFib. HISTORY OF PRESENT ILLNESS: This is a 24-year-old male with past medical history significant for bipolar depression, anxiety, currently living with the parents presents with palpitations. The patient says yesterday morning he woke up, he was feeling palpitations, his chest was pounding, he could see it, and when he tried to walk he was feeling lightheaded and almost passed out. It was getting difficult to breathe and had chest pains, so he came to the ER. In the ER, his heart rate was in 180s and 200s. He was given adenosine, which did not help much, but later rhythm showed atrial flutter. Cardiology was notified and they started on Cardizem drip with bolus and Eliquis.. Now it has slowed down to 60s and 70s, but still irregular Currently, he is feeling better, but still not back to his usual self because it has never happened before. He vapes cigarettes and he also smokes marijuana 2-3 times a week. Denies any alcohol use. Currently resting comfortably and hemodynamically stable. Denies any headache. Since he was started on lithium, he has some pressure feeling behind his eyes. Denies any earaches. He has some runny nose from his allergies. He has smoker's cough. Currently, no shortness of breath. Was nauseous earlier, but no vomiting, no abdominal pain. Normal bowel and bladder movements. Denies any blood in the stools or black stools. Yesterday, he had one episode of burning micturition, but that has resolved. No hematuria. No swelling in the legs, no rash. Otherwise active. Admission Exam Per Admitting Provider GENERAL: The patient is of moderate build, not in acute distress. VITAL SIGNS: Temperature 36.8, pulse 69, respiratory rate 20, blood pressure 119/74, oxygen 97% on room air. When he came in, his pulse was in the 200s and 180s. HEENT: Pupils equal, round, and reactive to light. NECK: No JVD, supple. CARDIOVASCULAR: S1, S2 heard, irregular rhythm. No murmur. RESPIRATORY SYSTEM: Normal AP diameter. No accessory muscle use. No wheezing, no crackles. ABDOMEN: Soft, bowel sounds present, nontender. No distention. CENTRAL NERVOUS SYSTEM: Cranial nerves II-XII grossly intact. Nonfocal. EXTREMITIES: No edema, no erythema. Principal Diagnosis Atrial fibrillation status post cardioversion, bipolar depression Discharge Exam Constitutional well developed and well nourished; no acute distress and not ill appearing Eyes PERRL, conjunctivae normal, anicteric sclerae ENMT external ear and nose normal, oropharynx normal Neck trachea midline, no thyromegaly Respiratory normal respiratory effort; no respiratory distress Auscultation: lungs clear to auscultation bilaterally Cardiovascular Rate/Rhythm: regular rate, regular rhythm and + irregularly irregular Heart Sounds: no murmur Extremities: no edema Gastrointestinal (Abdomen) Inspection/Auscultation: abdomen normal to inspection Percussion/Palpation: abdomen soft; abdomen nontender Neurologic moves all extremities; no focal motor deficits Lymphatic no cervical or axillary lymphadenopathy Discharge Data Allergies Allergy/AdvReac Type Severity Reaction Status Date / Time No Known Allergies Allergy Unverified 03/22/20 22:46 Consultations 03/23/20 08:00 Consult Cardiology Routine 03/24/20 10:53 Consult Anesthesiology Routine Procedures Performed Operation Date: 03/25/20 07:45 Actual Procedures p Cardioversion - Alpesh Torres DO Hospital Course (1) Atrial fibrillation: Admitted with atrial fibrillation/flutter with RVR Has been on intravenous Cardizem drip Rate is reasonably controlled and is running around 100 Serial cardiac enzymes are negative for any ACS Echo has been pending He has been on lithium and methylphenidate for needed for his manic depression- not sure if it has anything to do with her atrial fibrillation Appreciate cardiology input and recommendation Beta-nena has been added Cardizem has been discontinued Beta-nena doses have been increased to 25 mg 3 times daily Status post elective cardioversion this morning 03/25/2020 Denies any more symptoms of palpitation and dizziness with ambulation He will be discharged home this afternoon (2) Manic depression: Controlled now Has been on PPI and methylphenidate (3) Bipolar depression: Controlled now Has been getting lithium once a day not twice daily DVT prophylax Has been on Eliquis Will have PCP appointment in 7 days and [facility] cardiology will call him for an appointment Total Time Total Time Spent Total Time Spent (In Minutes): 35 minutes Total Time Includes: Examination of the Patient, Discharge Planning, Medication Reconciliation and Communication With Other Providers Discharge Plan Discharge Items Patient Disposition: Home - Self-Care Reason For Visit: PALPITATIONS Discharge Diagnosis: Atrial fibrillation status post cardioversion, bipolar depression Condition on Discharge: Good Activity: Resume your previous activity Non-emergency contact: Primary Care Provider Call non-emergency contact if: you have any medication questions and your symptoms worsen Follow-up/Referrals: Yandel Jorge MD [Primary Care Provider] - 04/01/20 10:40 am ([facility] cardiology office will call you with an appointment) Diet: Heart Healthy Addtl Attending Provider Instructions: Please take your medications regularly Pending Studies at Discharge: No Stand-Alone Forms: My [employer], Smoking Cessation Medications and DC Order Prescriptions: New nicotine 7 mg/24 hr Patch 24 Hour 14 mg transdermal QAM 30 Days Qty: 30 RF: 0 metoprolol tartrate 25 mg Tablet 25 mg PO TID 30 Days Qty: 90 RF: 0 Eliquis 5 mg Tablet 5 mg PO BID 30 Days Qty: 60 RF: 0 Continued methylphenidate HCl 18 mg tablet extended release 24hr 18 mg PO QAM RF: 0 lithium carbonate 150 mg capsule 150 mg PO BID RF: 0 hydroxyzine HCl 25 mg tablet 25 - 50 mg PO HS PRN (Reason: Insomnia) RF: 0 lorazepam [Ativan] 0.5 mg Tablet 0.5 mg PO DAILY PRN (Reason: Anxiety) RF: 0 Discharge Orders: Discharge Order (Routine); Ordered 03/25/20 Ordered By: Gloria Weiner Admission Data Admit Date/Time: 03/23/20 00:16 Attending Provider: Gloria Weiner Admit Provider: Trevon Powers Primary Care Provider: Yandel Jorge Other Providers: Alpesh Torres ; Josh Childress Other Interventions: Discharge Summary Assessment (RN) Last Done: 03/25/20 13:54 DC Date/Time DO NOT enter until pt leaves facility: 03/25/20 15:06
== END 2020-03-25 15:06 | disposition home or self-care (01) | DRG 309 ==
LOC: ED 20:57 → 1E 03-23 00:16 → 2S 03-23 12:40

== ENCOUNTER 2021-12-24 14:28 | Inpatient (IN) ==
[2021-12-24] MEDS ORDERED: METOPROLOL TARTRATE 1 MG/ML VIAL IV STA (14:58)
[2021-12-24] MEDS ORDERED: STAT IV Infusion **Titration per Protocol STA (15:03)
[2021-12-24] MEDS ORDERED: dilTIAZem HCl 5 MG/ML 5 ML VIAL IV STA (15:03)
[2021-12-24] MEDS ORDERED: Heparin IV Adult Wt-Based Standard WITH Bolus Protocol IV STA (15:03)
[2021-12-24] MEDS ORDERED: Heparin IV Adult Wt-Based Standard WITH Bolus Protocol IV SCH (15:15)
[2021-12-24] MEDS ORDERED: dilTIAZem HCL 125 MG in DEXTROSE 5% 100 ML IV SCH (15:15)
[2021-12-24] MEDS: SODIUM CHLORIDE 0.9% 1000ML 1,000 ML IV SCH (15:17)
[2021-12-24] MEDS ORDERED: HEPARIN SOD (PORCINE) 1000 UNIT/ML IV ONE ×2 (15:19→15:30)
[2021-12-24] MEDS ORDERED: HEPARIN SODIUM/DEXTROSE 25,000 UNITS/500 ML BAG IV SCH (15:30)
--- NOTE | 2021-12-24 15:33 | Emergency Department Note ---
History of Present Illness General Chief complaint: Cardiac Assessment Stated complaint: CARDIAC ASSESSMENT Time Seen by Provider: 12/24/21 14:33 Source: patient Mode of arrival: EMS Limitations: no limitations History of Present Illness Provider complaint: Chest pain, palpitations, dizziness, shortness of breath Onset (ago): day(s) 4 Location: chest Radiation: non-radiation Severity: moderate Maximum Pain Intensity: 4 Quality: + constant Relieved By: + rest Exacerbated By: + movement Associated symptoms: + chest pain, + malaise and + shortness of breath; no cough, no fever/chills or no loss of appetite This is a 26-year-old male presents emergency department via EMS after being found to be in rapid atrial fibrillation in the cardiology office at [facility] [address] today. Patient states symptoms first began on Tuesday. He states he does have a history of atrial fibrillation, and he was hoping that his heart would reset and it would stop on its own. Patient states has been very fatigued over the last 3 days. He states today he developed dizziness, shortness of breath with exertion and accompanying chest pain. Patient does take metoprolol daily, denies skipping or missing any doses. Patient states he was at a [employer] and did have 2 glasses of champagne the night before this started. Patient denies alcohol being a trigger in the past for his atrial fibrillation. Patient has previously been admitted for atrial fibrillation and had cardioversion. Patient was not given any other treatment prior to arrival. Patient does feel improved at rest, states symptoms are worse with exertion. Patient denies any change in bowel or bladder function. Patient states he has been off anticoagulation for at least 3 months. Pt seen during a time of high acuity and national emergency pandemic while wearing PPE. Home Medications Medication Instructions Recorded Confirmed Type epinephrine 0.3 mg/0.3 mL 0.3 mg IM Q4H PRN #2 ea 06/06/21 12/24/21 Rx injection, auto-injector (EpiPen 2-Dawson) albuterol sulfate 90 mcg/actuation 2 puff INHALATION QID PRN 12/24/21 12/24/21 History aerosol inhaler (Ventolin HFA) apixaban 5 mg tablet (Eliquis) 5 mg PO BID 30 Days #60 tab 12/25/21 Rx metoprolol tartrate 25 mg tablet 25 mg PO BID 30 Days #60 tab 12/25/21 Rx Allergies Allergy/AdvReac Type Severity Reaction Status Date / Time No Known Allergies Allergy Verified 12/24/21 15:03 Past Med/Surg History Medical History Anxiety Asthma Bipolar depression Irritable bowel syndrome with constipation Manic depression Paroxysmal atrial fibrillation Surgical History History of placement of ear tubes History of sinus surgery Social History Smoking Status: Current some day smoker Tobacco Type: E-cigarettes / Vaping Hx Alcohol Use: Yes Hx Substance Use: No Preferred Language: Slovenian Communication Ability: Effective Physical Fitness Teacher Required: No Beliefs That Will Affect Care: None Current Living Situation: Family Other Information That Helps Us Care for You: No Feels Safe at Home: Yes Safety Concerns: Feels Safe At This Time Assistive Devices: None Review of Systems A total of 10 systems reviewed and were otherwise negative All systems reviewed & are unremarkable except as noted in HPI & below Physical Exam Vital Signs Vital Signs - 24 hr 12/24/21 14:50 12/24/21 14:52 12/24/21 15:00 Temperature 37.0 C Temperature Source Oral Pulse Rate 144 H 133 H Pulse Rate from SpO2 Sensor 91 H Pulse Rhythm Irregular Respiratory Rate 24 23 Respiratory Effort / Characteristics Non-Labored Spontaneous Respiratory Depth Normal Respiratory Pattern Regular Blood Pressure 141/75 H 102/78 Blood Pressure Mean 97 86 Pulse Oximetry 96 96 Oxygen Delivery Method Room Air Room Air Room Air Sepsis Recent Fever Within 48 Hours No Sepsis New/Unexplained Change in Mental Status No Sepsis Action Taken by Nursing No Action Required 12/24/21 15:30 12/24/21 16:00 12/24/21 16:30 Temperature Temperature Source Pulse Rate 76 90 86 Pulse Rate from SpO2 Sensor 75 75 81 Pulse Rhythm Respiratory Rate 24 22 14 Respiratory Effort / Characteristics Respiratory Depth Respiratory Pattern Blood Pressure 103/61 110/75 Blood Pressure Mean 75 86 Pulse Oximetry 96 97 97 Oxygen Delivery Method Room Air Room Air Room Air Sepsis Recent Fever Within 48 Hours Sepsis New/Unexplained Change in Mental Status Sepsis Action Taken by Nursing 12/24/21 16:31 Temperature Temperature Source Pulse Rate 92 H Pulse Rate from SpO2 Sensor 96 H Pulse Rhythm Respiratory Rate 19 Respiratory Effort / Characteristics Respiratory Depth Respiratory Pattern Blood Pressure 124/71 Blood Pressure Mean 88 Pulse Oximetry 97 Oxygen Delivery Method Room Air Sepsis Recent Fever Within 48 Hours Sepsis New/Unexplained Change in Mental Status Sepsis Action Taken by Nursing GENERAL: alert, well appearing, well nourished, no distress, non-toxic EYE EXAM: normal conjunctiva, PERRL and EOM's grossly intact OROPHARYNX: no exudate, no erythema, lips, buccal mucosa, and tongue normal and mucous membranes are moist NECK: supple, no nuchal rigidity, no adenopathy, non-tender LUNGS: Clear to auscultation. Normal chest wall mechanics, no w/r/r HEART: no murmurs, S1 normal and S2 normal, A. fib with RVR ABDOMEN: abdomen soft, non-tender, normo-active bowel sounds, no masses, no rebound or guarding. BACK: Back is symmetrical on inspection and there is no deformity, no midline tenderness, no CVA tenderness. SKIN: no rashes and no bruising UPPER EXTREMITIES: upper extremities are grossly normal. FROM, nml pulses b/l. LOWER EXTREMITIES: No pitting edema. FROM, nml pulses b/l. NEURO EXAM: Normal sensorium, cranial nerves II-XII grossly intact, normal speech, no gross weakness of arms, no gross weakness of legs. Gross sensation intact. Course Course 1515: Dr. Rosen recommends labs, Covid test, Cardizem drip and heparin drip. Given patient just ate 3 hours ago, he will need to be admitted overnight, kept n.p.o., to undergo a ROSE in the morning with likely subsequent cardioversion. 1548: Nursing reports patient on a normal sinus rhythm in the 80s. Upon entering the room, patient is still symptomatic, while heart rate is in the 80s it does still appear irregular. 1555: Dr. Rosen now at bedside. Administered Medications Discontinued Medications Apixaban (Apixaban 2.5 Mg Tab) 5 mg PO ONE STA Stop: 12/24/21 16:05 Last Admin: 12/24/21 17:02 Dose: 5 mg Documented by: [id number] Apixaban (Apixaban 5 Mg Tablet) 5 mg PO BID [facility] Stop: 01/24/22 05:59 Last Admin: 12/25/21 05:37 Dose: 5 mg Documented by: [id number] Diltiazem HCl (Diltiazem Hcl 5 Mg/Ml 5 Ml Vial) 20 mg IV NOW STA Stop: 12/24/21 15:04 Last Admin: 12/24/21 15:18 Dose: 20 mg Documented by: [id number] Cosigned by: [id number] Heparin Sodium/Dextrose (Heparin Iv Adult Wt-Based Standard With Bolus Protocol) 1 ea IV NOW STA; Protocol Stop: 12/24/21 15:04 Last Admin: 12/24/21 16:20 Dose: Not Given Documented by: [id number] Sodium Chloride (Nss 1000ml) 1,000 mls @ 125 mls/hr IV .Q8H [facility] Stop: 01/23/22 14:59 Last Admin: 12/25/21 00:44 Dose: 125 mls/hr Documented by: [id number] Infusion: 12/24/21 23:17 Dose: 125 mls/hr Documented by: [id number] Admin: 12/24/21 15:17 Dose: 125 mls/hr Documented by: [id number] Diltiazem HCl 125 mg/ Dextrose 125 mls @ 5 mls/hr IV .Q24H [facility]; Protocol Stop: 01/23/22 15:14 Last Admin: 12/24/21 15:35 Dose: 5 mg/hr, 5 mls/hr Documented by: [id number] Cosigned by: [id number] Heparin Sodium/Dextrose (Heparin Sodium/Dextrose) 25,000 units in 500 mls @ 34 mls/hr IV .[id number] [facility]; Protocol Stop: 01/23/22 15:29 Last Admin: 12/24/21 16:20 Dose: Not Given Documented by: [id number] Metoprolol Tartrate (Metoprolol Tartrate 25 Mg Tab) 25 mg PO ONE ONE Stop: 12/24/21 16:16 Last Admin: 12/24/21 17:02 Dose: 25 mg Documented by: [id number] Metoprolol Tartrate (Metoprolol Tartrate 25 Mg Tab) 25 mg PO BID [facility] Stop: 01/23/22 20:59 Last Admin: 12/25/21 09:07 Dose: 25 mg Documented by: [id number] Admin: 12/24/21 21:04 Dose: 25 mg Documented by: [id number] Critical Care Time Critical Care Time: Yes Total Critical Care Time: 35 Critical care of 35 min performed to assess and manage high likelihood of life- threatening dysrhythmia, involving labs and imaging performed with assessment to evaluate dysrhythmia diagnosis with frequent reassessment. This time includes bedside time, treatment discussions with patient/family/consultants, documentation time and excludes procedure time. Medical Decision Making Differential Diagnosis Differential diagnoses includes but is not limited to acute coronary syndrome, myocardial infarction, pericarditis, pulmonary embolus, aortic dissection, pneumonia, pneumothorax, musculoskeletal, shingles, esophageal. Medical Records Attestation: I reviewed the patient's medical records. Home Medications Current Medication List: was personally reviewed by me Laboratory Data Attestation: I reviewed the patient's lab results. Result diagrams: 12/25/21 05:02 12/25/21 05:02 Lab Results 12/24/21 12/24/21 12/24/21 Range/Units 14:48 14:48 14:48 WBC 6.96 (4.8-10.8) K/uL RBC 5.22 (4.7-6.1) M/uL Hgb 16.1 (14.0-18.0) g/dL Hct 46.4 (42-52) % MCV 88.9 (80-100) fL MCH 30.8 (25-34) pg MCHC 34.7 (32-36) g/dL RDW Std Deviation 41.3 (36.4-46.3) fL RDW Coeff of Anamika 12.7 (11.5-14.5) % Plt Count 226 (130-400) K/uL MPV 11.6 H (7.4-10.4) fL Immature Gran % (Auto) 0.3 % Neut % (Auto) 63.5 % Lymph % (Auto) 26.0 % [place] % (Auto) 7.5 % Eos % (Auto) 2.6 % Baso % (Auto) 0.1 % Neut # (Auto) 4.42 (1.4-6.5) K/uL Lymph # (Auto) 1.81 (1.2-3.4) K/uL [place] # (Auto) 0.52 (0.11-0.59) K/uL Eos # (Auto) 0.18 (0-0.5) K/uL Baso # (Auto) 0.01 (0-0.2) K/uL Immature Gran # (Auto) 0.02 (0.00-0.02) K/uL Sodium 139 (136-145) mmol/L Potassium 4.0 (3.5-5.1) mmol/L Chloride 108 H (98-107) mmol/L Carbon Dioxide 25 (21-32) mmol/L Anion Gap 6 (3-11) BUN 12 (6-23) mg/dl Creatinine 0.94 (0.6-1.4) mg/dl Est Cr Clr Drug Dosing 159.5 ml/min Est GFR ( Amer) 129.2 ml/min Est GFR (Non-Af Amer) 111.5 ml/min BUN/Creatinine Ratio 12.8 (10-20) Glucose 99 (70-99(Fasting)) mg/dl Calcium 8.8 (8.5-10.1) mg/dl Magnesium 1.9 (1.7-2.4) mg/dl Total Bilirubin 0.7 (0.2-1.0) mg/dl AST 20 (13-39) U/L ALT 27 (7-52) U/L Alkaline Phosphatase 72 (34-104) U/L Troponin I < 0.03 (0-0.04) ng/ml Total Protein 6.4 (6.0-8.3) gm/dl Albumin 4.1 (3.4-5.0) gm/dl Globulin 2.3 L (2.5-4.0) gm/dl Albumin/Globulin Ratio 1.8 (0.9-2) TSH 1.372 (0.300-4.500) uIu/ml SARS-CoV-2, RNA, NAAT (NEGATIVE) 12/24/21 Range/Units 15:40 WBC (4.8-10.8) K/uL RBC (4.7-6.1) M/uL Hgb (14.0-18.0) g/dL Hct (42-52) % MCV (80-100) fL MCH (25-34) pg MCHC (32-36) g/dL RDW Std Deviation (36.4-46.3) fL RDW Coeff of Anamika (11.5-14.5) % Plt Count (130-400) K/uL MPV (7.4-10.4) fL Immature Gran % (Auto) % Neut % (Auto) % Lymph % (Auto) % [place] % (Auto) % Eos % (Auto) % Baso % (Auto) % Neut # (Auto) (1.4-6.5) K/uL Lymph # (Auto) (1.2-3.4) K/uL [place] # (Auto) (0.11-0.59) K/uL Eos # (Auto) (0-0.5) K/uL Baso # (Auto) (0-0.2) K/uL Immature Gran # (Auto) (0.00-0.02) K/uL Sodium (136-145) mmol/L Potassium (3.5-5.1) mmol/L Chloride (98-107) mmol/L Carbon Dioxide (21-32) mmol/L Anion Gap (3-11) BUN (6-23) mg/dl Creatinine (0.6-1.4) mg/dl Est Cr Clr Drug Dosing ml/min Est GFR ( Amer) ml/min Est GFR (Non-Af Amer) ml/min BUN/Creatinine Ratio (10-20) Glucose (70-99(Fasting)) mg/dl Calcium (8.5-10.1) mg/dl Magnesium (1.7-2.4) mg/dl Total Bilirubin (0.2-1.0) mg/dl AST (13-39) U/L ALT (7-52) U/L Alkaline Phosphatase (34-104) U/L Troponin I (0-0.04) ng/ml Total Protein (6.0-8.3) gm/dl Albumin (3.4-5.0) gm/dl Globulin (2.5-4.0) gm/dl Albumin/Globulin Ratio (0.9-2) TSH (0.300-4.500) uIu/ml SARS-CoV-2, RNA, NAAT NEGATIVE (NEGATIVE) Imaging Data Radiologist's Impression: Chest X-Ray 12/24/21 14:58 XR chest 1V portable CLINICAL HISTORY: sob, cp TECHNIQUE: Single frontal radiograph of the chest was obtained. Comparison: Comparison is made to chest one view 11/07/2021 FINDINGS: No lines and tubes are seen. The cardiomediastinal silhouette is normal. Faint bibasilar airspace opacities are seen. No evidence of pleural effusion or pneumothorax. IMPRESSION: Faint bibasilar airspace opacities are favored to represent atelectasis, however superimposed aspiration/pneumonia cannot be entirely excluded. ACT 112: Negative or not required by law. Electronically signed by: Efra Kiran M.D. 12/24/2021 5:06 PM ECG Data Attestation: I personally reviewed and interpreted this ECG as follows: Indication: + chest pain, + palpitations and + SOB/dyspnea Rate (beats per minute): 158 Rhythm: + atrial fibrillation ECG Intervals/blocks: + Normal QRS and + Normal QT ECG [place]: + Normal ECG ST segments: + Nonspecific ST abnormalities MDM Narrative This is a 26-year-old male brought in by EMS after being sent in from outpatient cardiology office. Patient with a history of atrial fibrillation and appeared to be in A. fib with RVR again. Patient with symptoms now for at least 4 days therefore not an ideal candidate for immediate cardioversion. Patient has previously been cardioverted as well as admitted for IV medication. Case discussed with cardiology on-call, Dr. Rosen who was aware that the patient was being sent over and made initial recommendations. He also came and evaluated the patient in the emergency room. After initial Cardizem bolus, patient's rate was markedly improved although still irregular. Patient symptoms were mildly improved however still present. After cardiology evaluated patient in the emergency room, they did make some changes given the decline in his rate with Cardizem. Patient admitted to the hospitalist service to be kept n.p.o. and undergo ROSE in the morning, with hopeful cardioversion following this. An order was placed for continuous cardiac monitoring. The monitor shows a rate of _143_ with __A. fib_ rhythm. Impression & Plan Atypical chest pain, Paroxysmal atrial fibrillation, Dizziness Discharge Plan Visit Data Chief Complaint: Cardiac Assessment Stated Complaint: CARDIAC ASSESSMENT ED Provider: Kaitlyn Pizano Discharge Problem: Atypical chest pain, Paroxysmal atrial fibrillation, Dizziness Patient Disposition: Admitted As Inpatient Condition: Good Discharge Instructions Interventions: ED Discharge Assessment Last Done: 12/24/21 17:34
[2021-12-24 15:47] LABS: Basophils # (auto) 0.01 K/uL (0-0.2); Basophils % (auto) 0.1 %; Eosinophils # (auto) 0.18 K/uL (0-0.5); Eosinophils % (auto) 2.6 %; Hematocrit (blood only) 46.4 % (42-52); Hemoglobin 16.1 g/dL (14.0-18.0); Immature Granulocytes # (auto) 0.02 K/uL (0.00-0.02); Immature Granulocytes % (auto) 0.3 %; Lymphocytes # (auto) 1.81 K/uL (1.2-3.4); Mean Corpuscular Hemoglobin 30.8 pg (25-34); Mean Corpuscular Hgb Conc 34.7 g/dL (32-36); Mean Corpuscular Volume 88.9 fL (80-100); Mean Platelet Volume 11.6 fL (7.4-10.4); Monocytes # (auto) 0.52 K/uL (0.11-0.59); Monocytes % (auto) 7.5 %; Neutrophils # (auto) 4.42 K/uL (1.4-6.5); Neutrophils % (auto) 63.5 %; Platelet Count 226 K/uL (130-400); RDW Coefficient of Variation 12.7 % (11.5-14.5); RDW Standard Deviation 41.3 fL (36.4-46.3); Red Blood Count 5.22 M/uL (4.7-6.1); White Blood Count 6.96 K/uL (4.8-10.8)
[2021-12-24 16:01] LABS: Troponin I < 0.03 ng/ml (0-0.04)
[2021-12-24] MEDS ORDERED: APIXABAN 2.5 MG TAB PO STA (16:04)
[2021-12-24 16:08] LABS: Alanine Aminotransferase 27 U/L (7-52); Albumin Globulin Ratio 1.8 (0.9-2); Albumin Level 4.1 gm/dl (3.4-5.0); Alkaline Phosphatase 72 U/L (34-104); Anion Gap 6 (3-11); Aspartate Aminotransferase 20 U/L (13-39); BUN Creatinine Ratio 12.8 (10-20); Bilirubin,Total 0.7 mg/dl (0.2-1.0); Blood Urea Nitrogen 12 mg/dl (6-23); Calcium 8.8 mg/dl (8.5-10.1); Carbon Dioxide 25 mmol/L (21-32); Chloride 108 mmol/L (98-107); Creatinine Clr Calc Pharmacy 159.5 ml/min; Est GFR (African American) 129.2 ml/min; Est GFR (Non-African American) 111.5 ml/min; Globulin 2.3 gm/dl (2.5-4.0); Glucose 99 mg/dl (70-99(Fasting)); Magnesium 1.9 mg/dl (1.7-2.4); Sodium 139 mmol/L (136-145); Total Protein 6.4 gm/dl (6.0-8.3)
--- NOTE | 2021-12-24 16:14 | Cardiology Consultation ---
Date of Consultation December 24, 2021 Assessment & Plan (1) Atrial fibrillation: Onset > 72 hours ago. Rate control: IV diltiazem infusion, oral metoprolol. Stroke prevention: resume Eliquis 5 mg now, next dose 6 am tomorrow. If remains in AF tomorrow, plan for ROSE guided direct current cardioversion. 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 Has h/o cardioversion in 2019, and completed a one month course of Eliquis post procedure. Had two glasses of wine at a [employer] 5 days ago and has noted palpitations since the day after, for the last 4 days. He presented to the cardiology clinic today and was found to have atrial fibrillation with ventricular rate in the 190s prompting transfer to the ED by ambulance. Upon my arrival , patient is on a diltiazem infusion at 5 mg/hr with AF rates in the 90s. Allergies Allergy/AdvReac Type Severity Reaction Status Date / Time No Known Allergies Allergy Verified 12/24/21 15:03 Home Medications Medication Instructions Recorded Confirmed Type metoprolol tartrate 25 mg tablet See Rx Instructions .ROUTE .COMPLEX 04/28/20 History epinephrine 0.3 mg/0.3 mL 0.3 mg IM Q4H PRN #2 ea 06/06/21 12/24/21 Rx injection, auto-injector (EpiPen 2-Dawson) Patient History Medical History Anxiety Asthma Atrial fibrillation Bipolar depression Manic depression Surgical History History of placement of ear tubes History of sinus surgery Social History Smoking Status: Current some day smoker Tobacco Type: E-cigarettes / Vaping Hx Alcohol Use: No Hx Substance Use: No Preferred Language: Croatian Communication Ability: Effective Lead Business Systems Analyst Required: No Beliefs That Will Affect Care: None Current Living Situation: Family Feels Safe at Home: Yes Assistive Devices: None Review of Systems Review of Systems: All systems reviewed & are unremarkable except as noted in HPI & below Physical Exam Constitutional: WD/WN, vitals as above Respiratory: normal respiratory effort, lungs clear to auscultation Cardiovascular: Rate/Rhythm: + irregularly irregular Heart Sounds: no murmur Extremities: no edema Gastrointestinal (Abdomen): normal bowel sounds, soft, nontender, no hepatosplenomegaly Neurologic: PERRL, EOMI, accommodation nl, no face palsy, no dysarthria Results & Data ([facility]) Vital Signs (Past 12 Hours) Vital Signs Temp Pulse Resp BP Pulse Ox 12/24/21 15:30 76 24 103/61 96 12/24/21 15:00 133 H 23 102/78 96 12/24/21 14:52 37.0 C 144 H 24 141/75 H 96 Laboratory Results Cardiac Enzymes 12/24/21 Range/Units 14:48 AST 20 (13-39) U/L Troponin I < 0.03 (0-0.04) ng/ml CBC 12/24/21 Range/Units 14:48 WBC 6.96 (4.8-10.8) K/uL RBC 5.22 (4.7-6.1) M/uL Hgb 16.1 (14.0-18.0) g/dL Hct 46.4 (42-52) % Plt Count 226 (130-400) K/uL Neut # (Auto) 4.42 (1.4-6.5) K/uL Lymph # (Auto) 1.81 (1.2-3.4) K/uL [place] # (Auto) 0.52 (0.11-0.59) K/uL Eos # (Auto) 0.18 (0-0.5) K/uL Baso # (Auto) 0.01 (0-0.2) K/uL Comprehensive Metabolic Panel 12/24/21 Range/Units 14:48 Sodium 139 (136-145) mmol/L Potassium 4.0 (3.5-5.1) mmol/L Chloride 108 H (98-107) mmol/L Carbon Dioxide 25 (21-32) mmol/L BUN 12 (6-23) mg/dl Creatinine 0.94 (0.6-1.4) mg/dl Glucose 99 (70-99(Fasting)) mg/dl Calcium 8.8 (8.5-10.1) mg/dl AST 20 (13-39) U/L ALT 27 (7-52) U/L Alkaline Phosphatase 72 (34-104) U/L Total Protein 6.4 (6.0-8.3) gm/dl Albumin 4.1 (3.4-5.0) gm/dl Intake and Output 12/24/21 12/24/21 12/24/21 06:59 14:59 22:59 Other: Weight 113.5 kg Weight Measurement Method Built in [facility] Patient Weight 12/25/21 06:59 Weight 113.5 kg
[2021-12-24] MEDS ORDERED: METOPROLOL TARTRATE 25 MG TAB PO ONE (16:15)
--- NOTE | 2021-12-24 17:08 | XRay Report ---
XR chest 1V portable CLINICAL HISTORY: sob, cp TECHNIQUE: Single frontal radiograph of the chest was obtained. Comparison: Comparison is made to chest one view 11/07/2021 FINDINGS: No lines and tubes are seen. The cardiomediastinal silhouette is normal. Faint bibasilar airspace opa cities are seen. No evidence of pleural effusion or pneumothorax. IMPRESSION: Faint bibasilar airspace opacities are favored to represent atelectasis, however superimposed aspirat ion/pneumonia cannot be entirely excluded. ACT 112: Negative or not required by law. Electronically signed by: Efra Kiran M.D. 12/24/2021 5:06 PM
--- NOTE | 2021-12-24 17:24 | History & Physical Report ---
Date of Service December 24, 2021 Assessment & Plan (1) Paroxysmal atrial fibrillation: Plan: Atrial flutter A. fib RVR TSH normal Started on IV diltiazem Also received metoprolol Appreciate cardiology input Started on Eliquis for anticoagulation Plan for ROSE cardioversion tomorrow NPO after midnight Irritable bowel syndrome Bipolar disorder Currently not on any medications DVT prophylaxis Eliquis CODE STATUS Full code Admission and Anticipated Discharge Date Admission Date: December 24, 2021 History of Present Illness Chief Complaint: Palpitations Primary Care Provider: Yandel Jorge MD Patient is a 26-year-old male with history of paroxysmal atrial fibrillation , history of cardioversion in 2019, previously on anticoagulation with Eliquis which was discontinued about a month ago presents with history of palpitations which started on Tuesday. Patient felt exhausted and slept most of the time yesterday. Patient states developing generalized pressure-like, retrosternal chest discomfort today associated with palpitations, dizziness and shortness of breath. Patient also states having trouble concentrating as a result of the symptoms. He admits that palpitations worsened when lying flat and improved with sitting. Patient was found to be in atrial flutter initially and was placed on Cardizem drip currently is in atrial fibrillation. Patient was evaluated by cardiology while in ED. He was planned for cardioversion tomorrow. Patient complains to have chronic abdominal pain which he attributes to irritable bowel and is unchanged. Denies any history of pedal edema, cough, fever, chills, LOC, headache, change in vision, nausea, vomiting, diarrhea. Allergies Allergy/AdvReac Type Severity Reaction Status Date / Time No Known Allergies Allergy Verified 12/24/21 15:03 Home Medications Medication Instructions Recorded Confirmed Type metoprolol tartrate 25 mg tablet See Rx Instructions .ROUTE .COMPLEX 04/28/20 12/24/21 History epinephrine 0.3 mg/0.3 mL 0.3 mg IM Q4H PRN #2 ea 06/06/21 12/24/21 Rx injection, auto-injector (EpiPen 2-Dawson) albuterol sulfate 90 mcg/actuation 2 puff INHALATION QID PRN 12/24/21 12/24/21 History aerosol inhaler (Ventolin HFA) Past Med/Surg History Medical History Anxiety Asthma Bipolar depression Irritable bowel syndrome with constipation Manic depression Paroxysmal atrial fibrillation Surgical History History of placement of ear tubes History of sinus surgery Social History Smoking Status: Current some day smoker Tobacco Type: E-cigarettes / Vaping Hx Alcohol Use: Yes (rare use ) Hx Substance Use: No Preferred Language: Greenlandic Communication Ability: Effective Clam Digger Required: No Beliefs That Will Affect Care: None Current Living Situation: Family Feels Safe at Home: Yes Assistive Devices: None Review of Systems Review of Systems: All systems reviewed & are unremarkable except as noted in HPI & below Physical Exam Physical Exam: Physical Exam: Vitals signs as noted above General Appearance:Moderately built and nourished, no apparent distress Head: normocephalic, Atraumatic Eyes: normal inspection, EOMI Neck: supple, Trachea midline Respiratory/Chest: Normal breath sounds, CTA, No accessory muscle use Cardiovascular: Irregularly Irregular, No murmur Abdomen/GI:Soft, Non tender, Bowel sounds present Extremities/Musculoskeletal:normal inspection, no edema Neurologic/Psych:AAOX3, grossly no focal neurological deficits Skin: normal color, warm Results & Data Results & Data ([facility]) Vital Signs (Past 12 Hours) Vital Signs Temp Pulse Resp BP Pulse Ox 12/24/21 16:31 92 H 19 124/71 97 12/24/21 16:30 86 14 97 12/24/21 16:00 90 22 110/75 97 12/24/21 15:30 76 24 103/61 96 12/24/21 15:00 133 H 23 102/78 96 12/24/21 14:52 37.0 C 144 H 24 141/75 H 96 Laboratory Results Short CBC 12/24/21 Range/Units 14:48 WBC 6.96 (4.8-10.8) K/uL Hgb 16.1 (14.0-18.0) g/dL Hct 46.4 (42-52) % Plt Count 226 (130-400) K/uL BMP 12/24/21 14:48 Sodium 139 Potassium 4.0 Chloride 108 H Carbon Dioxide 25 BUN 12 Creatinine 0.94 Glucose 99 Calcium 8.8 Cardiac Enzymes 12/24/21 Range/Units 14:48 Troponin I < 0.03 (0-0.04) ng/ml Liver Function 12/24/21 Range/Units 14:48 Total Bilirubin 0.7 (0.2-1.0) mg/dl AST 20 (13-39) U/L ALT 27 (7-52) U/L Alkaline Phosphatase 72 (34-104) U/L Albumin 4.1 (3.4-5.0) gm/dl Diagnostic Findings CXR:Faint bibasilar airspace opacities are favored to represent atelectasis, however superimposed aspiration/pneumonia cannot be entirely excluded. Code Status & VTE Plan VTE Prophylaxis Plan VTE Prophylaxis will be ordered: Yes
--- NOTE | 2021-12-24 17:29 | Anesthesiology Consultation ---
Date of Service December 24, 2021 Assessment & Plan Chart Review Chart Review: Acceptable Risk for Surgery and Patient NOT seen in Pre Admission Testing Consults Requested none ASA ASA3 Proposed Anesthesia Anesthesia Type: General History Surgery Operation Date: 12/25/21 07:15 Proposed Procedures p Transesophageal Echo w/Anesthesia - Felix Rosen DO s Cardioversion - Felix Rosen DO Height/Weight Height: 6 ft 2 in Weight: 113.5 kg Allergies Allergy/AdvReac Type Severity Reaction Status Date / Time No Known Allergies Allergy Verified 12/24/21 15:03 Medications Home Medications Medication Instructions Recorded Confirmed Last Taken metoprolol tartrate 25 mg tablet See Rx Instructions .ROUTE .COMPLEX 04/28/20 12/24/21 07/03/20 epinephrine 0.3 mg/0.3 mL 0.3 mg IM Q4H PRN #2 ea 06/06/21 12/24/21 Unknown injection, auto-injector (EpiPen 2-Dawson) albuterol sulfate 90 mcg/actuation 2 puff INHALATION QID PRN 12/24/21 12/24/21 Unknown aerosol inhaler (Ventolin HFA) Active Medications Generic Name Dose Route Start Last Admin Trade Name Freq PRN Reason Stop Dose Admin Sodium Chloride 1,000 mls @ 125 mls/hr 12/24/21 15:00 12/24/21 15:17 Nss 1000ml IV 01/23/22 14:59 125 mls/hr .Q8H NINA Administration Diltiazem HCl 125 mg/ Dextrose 125 mls @ 5 mls/hr 12/24/21 15:15 12/24/21 15 :35 IV 01/23/22 15:14 5 mg/hr .Q24H NINA 5 mls/hr Administration Protocol 5 MG/HR Past Medical History Medical History Anxiety Asthma Bipolar depression Irritable bowel syndrome with constipation Manic depression Paroxysmal atrial fibrillation Exercise / Class Metabolic Activity II 4-5 Yardwork/Stairs/Walk up hill Past Surgical History Surgical History History of placement of ear tubes History of sinus surgery Past Anesthesia History No Hx of Anesthesia Complications and No Family Hx of Anesthesia Complications History of PONV No Hx of PONV and No Hx of Motion Sickness Social History Smoking Status: Current some day smoker Hx Alcohol Use: Yes (rare use ) Hx Substance Use: No substance use type: does not use Physical Exam Vital Signs Last Vital Signs Temp 37.0 C 12/24/21 14:52 Pulse 92 H 12/24/21 16:31 Resp 19 12/24/21 16:31 BP 124/71 12/24/21 16:31 Pulse Ox 97 12/24/21 16:31 Testing Laboratory Results 12/24/21 14:48 12/24/21 14:48 Electrocardiogram Date: 12/24/21 Findings: + AFIB @ (@ 158 w/RVR) Chest X-Ray Date: 12/24/21 Findings: + atelectasis Echocardiogram Date: 03/23/20 EF: 55% LV Function: normal RWMA: + none Valvular Disease: + no significant valvular disease
[2021-12-24] MEDS ORDERED: POLYETHYLENE (MIRALAX) 17 GM PACK PO PRN (17:30)
[2021-12-24] MEDS ORDERED: ACETAMINOPHEN 325 MG TAB PO PRN (17:30)
[2021-12-24] MEDS ORDERED: ALBUTEROL HFA 8 GM INHALER INH PRN (17:30)
[2021-12-24] MEDS ORDERED: EPINEPHrine INJ 1 MG/ML AMP IM PRN (17:30)
[2021-12-24 18:13] LABS: Amphetamines+Metham, Urine Neg (Neg); Barbiturates, Urine Neg (Neg); Benzodiazepine, Urine Neg (Neg); Cocaine, Urine Neg (Neg); MDMA (Ecstacy), Urine Neg (Neg); Methadone, Urine Neg (Neg); Opiate, Urine Neg (Neg); Phencyclidine, Urine Neg (Neg)
[2021-12-24] MEDS ORDERED: APIXABAN 2.5 MG TAB PO SCH (21:00)
[2021-12-24] MEDS: METOPROLOL TARTRATE 25 MG TAB PO SCH (21:04)
[2021-12-25] MEDS: SODIUM CHLORIDE 0.9% 1000ML 1,000 ML IV SCH (00:44)
[2021-12-25 05:38] LABS: Hemoglobin 15.2 g/dL (14.0-18.0); Mean Corpuscular Hemoglobin 30.6 pg (25-34); Mean Corpuscular Hgb Conc 33.8 g/dL (32-36); Mean Corpuscular Volume 90.5 fL (80-100); Mean Platelet Volume 11.3 fL (7.4-10.4); Platelet Count 214 K/uL (130-400); RDW Standard Deviation 42.7 fL (36.4-46.3); Red Blood Count 4.97 M/uL (4.7-6.1)
[2021-12-25 05:56] LABS: Calcium 8.8 mg/dl (8.5-10.1); Creatinine Clr Calc Pharmacy 180.5 ml/min; Est GFR (African American) 140.7 ml/min; Est GFR (Non-African American) 121.4 ml/min; Potassium 4.2 mmol/L (3.5-5.1)
[2021-12-25] MEDS ORDERED: APIXABAN 5 MG TABLET PO SCH (06:00)
[2021-12-25] MEDS ORDERED: BENZOCAINE/TETRACAIN/BUTAM 50 APPLN/5 GM CAN EXT ONE (06:56)
[2021-12-25] MEDS ORDERED: PROPOFOL IV EMULSION 10 MG/ML 20 ML VIAL IV ONE ×2 (07:10→08:01)
--- NOTE | 2021-12-25 07:16 | History & Physical Bridge Note ---
Date of Service December 25, 2021 History & Physical Bridge Note I have examined the patient, reviewed the History & Physical and in the interval since the performance of the History & Physical I have noted the following changes of clinical significance: no changes noted.
--- NOTE | 2021-12-25 07:58 | Cardioversion ---
Date of Service December 25, 2021 Electrical Cardioversion Rpt Electrical Cardioversion Report Date of Surgery December 25, 2021 Pre & Post Diagnosis Operation Date: 12/25/21 07:15 Preprocedure diagnosis: Symptomatic atrial fibrillation with rapid ventricular spots Post procedure diagnosis: No left atrial appendage thrombus, successful conversion to sinus rhythm Procedure Transesophageal echocardiogram guided direct-current cardioversion: The patient's vital signs were monitored in the standard fashion. After informed consent was obtained a timeout was performed the patient was sedated with the assistance of the anesthesia service, Dr. Cabrera, with patient receiving a total of 250 mg of IV propofol, 40 mg IV lidocaine. A focused, goal-directed transesophageal echocardiogram was performed for risk stratification prior to consideration of direct-current cardioversion. Left ventricular systolic function was normal, trace mitral vegetation was present, no left atrial or left atrial appendage thrombus noted with normal left atrial appendage contractility observed. The patient then underwent direct-current cardioversion receiving a single dose of 200 J of synchronized biphasic energy with successful conversion to sinus rhythm. Recommendations: Continue metoprolol tartrate 25 mg twice daily. Complete 1 month course of Eliquis 5 mg twice daily post cardioversion. Outpatient cardiology follow-up will be arranged. Meat Seafood Associate Felix Rosen DO Lead Loader Roselia Aragon RDCS Estimated Blood Loss 0 Findings As noted above. Anesthesia Type MAC Complications None
[2021-12-25] MEDS ORDERED: LIDOCAINE 2% MPF LOCAL 5 ML VIAL INFIL ONE (08:01)
--- NOTE | 2021-12-25 08:28 | Anesthesiology Progress Note ---
Date of Service December 25, 2021 Anesthesia Post Procedure Vital Signs Vital Signs: Temp Pulse Pulse Resp BP BP Pulse Ox 12/25/21 08:15 82 15 110/60 95 12/25/21 08:00 84 15 109/63 96 12/25/21 07:54 85 15 111/58 L 95 12/25/21 07:02 100 H 118/69 98 12/25/21 05:41 23 99/62 L 96 12/25/21 03:30 67 20 94 12/24/21 19:47 86 18 100/72 96 12/24/21 19:40 82 18 100/72 96 12/24/21 19:32 79 18 100/72 95 12/24/21 18:30 78 24 105/64 96 12/24/21 18:01 90 24 100/67 96 12/24/21 18:00 71 23 96 12/24/21 17:42 86 21 112/74 97 12/24/21 17:01 84 21 106/72 96 12/24/21 17:00 99 H 24 97 12/24/21 16:31 92 H 19 124/71 97 12/24/21 16:30 86 14 97 12/24/21 16:00 90 22 110/75 97 12/24/21 15:30 76 24 103/61 96 12/24/21 15:00 133 H 23 102/78 96 12/24/21 14:52 37.0 C 144 H 24 141/75 H 96 Pulse Ox 12/25/21 08:15 12/25/21 08:00 12/25/21 07:54 12/25/21 07:02 12/25/21 05:41 12/25/21 03:30 12/24/21 19:47 12/24/21 19:40 12/24/21 19:32 12/24/21 18:30 98 12/24/21 18:01 12/24/21 18:00 12/24/21 17:42 12/24/21 17:01 12/24/21 17:00 12/24/21 16:31 12/24/21 16:30 12/24/21 16:00 12/24/21 15:30 12/24/21 15:00 12/24/21 14:52 Pain Intensity Chest: Pain Intensity: 2 Transfer of Care Handoff Completed per policy Notes Mental Status: alert / awake / arousable and participated in evaluation Patient Amnestic to Procedure: Yes Nausea / Vomiting: adequately controlled Pain: adequately controlled Airway Patency, RR, SpO2: stable & adequate BP & HR: stable & adequate Hydration State: stable & adequate Anesthetic Complications: no major complications apparent
[2021-12-25] MEDS: METOPROLOL TARTRATE 25 MG TAB PO SCH (09:07)
--- NOTE | 2021-12-25 10:38 | Hospitalist Progress Note ---
Date of Service December 25, 2021 Assessment & Plan (1) Paroxysmal atrial fibrillation: Plan: Atrial flutter A. fib RVR TSH normal Started on IV diltiazem and later on discontinued Also received metoprolol Appreciate cardiology input and recommendation Started on Eliquis for anticoagulation Status post ROSE with cardioversion Remains in sinus rhythm without any acute symptom Discussed with scientific diver-will be discharged home this morning Irritable bowel syndrome Bipolar disorder Currently not on any medications DVT prophylaxis Eliquis will be given for 1 CODE STATUS Full code Admission and Anticipated Discharge Date Admission Date: December 24, 2021 Subjective 12/25/2021 The patient was seen and examined in emergency room in presence of the mother He was admitted with the FEF with RVR and is a status post ROSE with cardioversion Heart rate has been in sinus rhythm now and denies any symptoms Review of Systems Review of Systems: All systems reviewed and are unremarkable except as noted below Physical Exam Physical Exam: Lying in bed comfortably Constitutional: well developed, well nourished and + obese; not ill appearing ENMT: external ear and nose normal, oropharynx normal Neck: trachea midline, no thyromegaly Respiratory: no respiratory distress Auscultation: lungs clear to auscultation bilaterally Cardiovascular: Rate/Rhythm: regular rate, regular rhythm and + tachycardic Heart Sounds: normal S1 and normal S2; no murmur Extremities: no edema Gastrointestinal (Abdomen): Inspection/Auscultation: abdomen not distended Percussion/Palpation: abdomen soft; abdomen nontender Musculoskeletal: No acute arthritis in any joint Neurologic: patellar DTR's 2+ bilat, sensation intact and PERRL, EOMI, acc ommodation nl, no face palsy, no dysarthria Results & Data Results & Data ([facility]) Vital Signs (Past 12 Hours) Vital Signs Pulse Resp BP BP Pulse Ox 12/25/21 09:30 79 20 97/72 L 97 12/25/21 09:03 82 16 120/69 98 12/25/21 08:36 83 16 96/60 L 97 12/25/21 08:15 82 15 110/60 95 12/25/21 08:00 84 15 109/63 96 12/25/21 07:54 85 15 111/58 L 95 12/25/21 07:02 100 H 118/69 98 12/25/21 05:41 23 99/62 L 96 12/25/21 03:30 67 20 94 Laboratory Results Short CBC 12/24/21 12/25/21 Range/Units 14:48 05:02 WBC 6.96 7.00 (4.8-10.8) K/uL Hgb 16.1 15.2 (14.0-18.0) g/dL Hct 46.4 45.0 (42-52) % Plt Count 226 214 (130-400) K/uL BMP 12/24/21 12/25/21 14:48 05:02 Sodium 139 138 Potassium 4.0 4.2 Chloride 108 H 107 Carbon Dioxide 25 28 BUN 12 10 Creatinine 0.94 0.83 Glucose 99 86 Calcium 8.8 8.8 Cardiac Enzymes 12/24/21 Range/Units 14:48 Troponin I < 0.03 (0-0.04) ng/ml Liver Function 12/24/21 Range/Units 14:48 Total Bilirubin 0.7 (0.2-1.0) mg/dl AST 20 (13-39) U/L ALT 27 (7-52) U/L Alkaline Phosphatase 72 (34-104) U/L Albumin 4.1 (3.4-5.0) gm/dl Medications Administered Current Inpatient Medications Acetaminophen (Acetaminophen 325 Mg Tab) 650 mg PO Q4H PRN PRN Reason: Pain or Fever Stop: 01/23/22 17:29 Albuterol (Albuterol Hfa 8 Gm Inhaler) 2 puffs INH QID PRN PRN Reason: Shortness Of Breath Or Wheezing Stop: 01/23/22 17:29 Apixaban (Apixaban 5 Mg Tablet) 5 mg PO BID NINA Stop: 01/24/22 05:59 Last Admin: 12/25/21 05:37 Dose: 5 mg Documented by: Epinephrine HCl (Epinephrine Inj 1 Mg/Ml Amp) 0.3 mg IM Q4H PRN PRN Reason: anaphylaxis Stop: 01/23/22 17:29 Sodium Chloride (Nss 1000ml) 1,000 mls @ 125 mls/hr IV .Q8H NINA Stop: 01/23/22 14:59 Last Admin: 12/25/21 00:44 Dose: 125 mls/hr Documented by: Diltiazem HCl 125 mg/ Dextrose 125 mls @ 5 mls/hr IV .Q24H NINA; Protocol Stop: 01/23/22 15:14 Last Admin: 12/24/21 15:35 Dose: 5 mg/hr, 5 mls/hr Documented by: Metoprolol Tartrate (Metoprolol Tartrate 25 Mg Tab) 25 mg PO BID [facility] Stop: 01/23/22 20:59 Last Admin: 12/25/21 09:07 Dose: 25 mg Documented by: Polyethylene Glycol (Polyethylene (Miralax) 17 Gm Pack) 17 gm PO DAILY PRN PRN Reason: Constipation Stop: 01/23/22 17:29
--- NOTE | 2021-12-25 10:40 | Cardiology Progress Note ---
Date of Service December 25, 2021 Assessment & Plan (1) Atrial fibrillation: Plan: Onset > 72 hours ago. SP ROSE CV, in SR. Stable for DC to home on metoprolol tartrate 25 mg BID. Continue eliquis 5 mg two times per day to complete 1 month of treatment post cardioersion. Outpatient cardio follow up visit in 1-[address] Discuss[address] with Dr Weiner. Admission and Anticipated Discharge Date Admission Date: December 24, 2021 Subjective Pt seen in follow up post ROSE CV. Mother at bedside. Tolerated breakfast. Feels well. Remains in SR. Post procedure EKG NSR, normal EKG. Physical Exam Constitutional: WD/WN, vitals as above Respiratory: normal respiratory effort, lungs clear to auscultation Cardiovascular: Rate/Rhythm: + irregularly irregular Heart Sounds: no murmur Extremities: no edema Gastrointestinal (Abdomen): normal bowel sounds, soft, nontender, no hepatosplenomegaly Neurologic: PERRL, EOMI, accommodation nl, no face palsy, no dysarthria Results & Data ([facility]) Vital Signs (Past 12 Hours) Vital Signs Pulse Resp BP BP Pulse Ox 12/25/21 09:30 79 20 97/72 L 97 12/25/21 09:03 82 16 120/69 98 12/25/21 08:36 83 16 96/60 L 97 12/25/21 08:15 82 15 110/60 95 12/25/21 08:00 84 15 109/63 96 12/25/21 07:54 85 15 111/58 L 95 12/25/21 07:02 100 H 118/69 98 12/25/21 05:41 23 99/62 L 96 12/25/21 03:30 67 20 94
--- NOTE | 2021-12-25 15:22 | Electrocardiogram Report ---
Test Reason : Blood Pressure : / mmHG Vent. Rate : 158 BPM Atrial Rate : 267 BPM P-R Int : 000 ms QRS Dur : 076 ms QT Int : 258 ms P-R-T Axes : 000 009 020 degrees QTc Int : 418 ms Atrial fibrillation with rapid ventricular response Abnormal ECG When compared with ECG of 07-NOV-2021 18:23, Atrial fibrillation has replaced Sinus rhythm Vent. rate has increased BY 80 BPM Confirmed by Dmitriy Hogan ([id number]) on 12/25/2021 3:22:17 PM Referred By: REFERRED SELF Confirmed By:Dmitriy Hogan
--- NOTE | 2021-12-25 16:59 | Electrocardiogram Report ---
Test Reason : Blood Pressure : / mmHG Vent. Rate : 087 BPM Atrial Rate : 087 BPM P-R Int : 148 ms QRS Dur : 078 ms QT Int : 342 ms P-R-T Axes : 075 006 030 degrees QTc Int : 411 ms Normal sinus rhythm Normal ECG When compared with ECG of 24-DEC-2021 14:41, (unconfirmed) Sinus rhythm has replaced Atrial fibrillation Vent. rate has decreased BY 71 BPM Confirmed by Dmitriy Hogan ([id number]) on 12/25/2021 4:59:11 PM Referred By: REFERRED SELF Confirmed By:Dmitriy Hogan
--- NOTE | 2021-12-26 08:59 | Discharge Summary ---
Date of Service December 26, 2021 Admission HPI Per Admitting Provider Patient is a 26-year-old male with history of paroxysmal atrial fibrillation , history of cardioversion in 2019, previously on anticoagulation with Eliquis which was discontinued about a month ago presents with history of palpitations which started on Tuesday. Patient felt exhausted and slept most of the time yesterday. Patient states developing generalized pressure-like, retrosternal chest discomfort today associated with palpitations, dizziness and shortness of breath. Patient also states having trouble concentrating as a result of the symptoms. He admits that palpitations worsened when lying flat and improved with sitting. Patient was found to be in atrial flutter initially and was placed on Cardizem drip currently is in atrial fibrillation. Patient was evaluated by cardiology while in ED. He was planned for cardioversion tomorrow. Patient complains to have chronic abdominal pain which he attributes to irritable bowel and is unchanged. Denies any history of pedal edema, cough, fever, chills, LOC, headache, change in vision, nausea, vomiting, diarrhea. Admission Exam Per Admitting Provider Physical Exam: Physical Exam: Vitals signs as noted above General Appearance:Moderately built and nourished, no apparent distress Head: normocephalic, Atraumatic Eyes: normal inspection, EOMI Neck: supple, Trachea midline Respiratory/Chest: Normal breath sounds, CTA, No accessory muscle use Cardiovascular: Irregularly Irregular, No murmur Abdomen/GI:Soft, Non tender, Bowel sounds present Extremities/Musculoskeletal:normal inspection, no edema Neurologic/Psych:AAOX3, grossly no focal neurological deficits Skin: normal color, warm Principal Diagnosis A. fib with RVR status post ROSE with cardioversion with reversion to sinus rhythm Discharge Exam Lying in bed comfortably Constitutional well developed, well nourished and + obese; not ill appearing ENMT external ear and nose normal, oropharynx normal Neck trachea midline, no thyromegaly Respiratory no respiratory distress Auscultation: lungs clear to auscultation bilaterally Cardiovascular Rate/Rhythm: regular rate, regular rhythm and + tachycardic Heart Sounds: normal S1 and normal S2; no murmur Extremities: no edema Gastrointestinal (Abdomen) Inspection/Auscultation: abdomen not distended Percussion/Palpation: abdomen soft; abdomen nontender Neurologic patellar DTR's 2+ bilat, sensation intact and PERRL, EOMI, accommodation nl, no face palsy, no dysarthria Discharge Data Allergies Allergy/AdvReac Type Severity Reaction Status Date / Time No Known Allergies Allergy Verified 12/24/21 15:03 Consultations 12/24/21 16:02 Consult Anesthesiology Routine 12/24/21 17:30 Consult Cardiology Routine Procedures Performed Operation Date: 12/25/21 07:15 Actual Procedures p Echo Transesophageal - DO santiago Barone Cardioversion - DO santiago Barone Doppler Echo Limited/Follow Up - DO santiago Barone Echo Color Flow - Felix Rosen DO Hospital Course (1) Paroxysmal atrial fibrillation: Atrial flutter A. fib RVR TSH normal Started on IV diltiazem and later on discontinued Also received metoprolol Appreciate cardiology input and recommendation Started on Eliquis for anticoagulation Status post ROSE with cardioversion Remains in sinus rhythm without any acute symptom Discussed with firm administrator-will be discharged home this morning Irritable bowel syndrome Bipolar disorder Currently not on any medications DVT prophylaxis Eliquis will be given for 1 CODE STATUS Full code Total Time Total Time Spent Total Time Spent (In Minutes): 35 minutes Discharge Plan Discharge Items Patient Disposition: Home - Self-Care Reason For Visit: A FIB WITH RVR Discharge Diagnosis: A. fib with RVR status post ROSE with cardioversion with reversion to sinus rhythm Condition on Discharge: Good Activity: Resume your previous activity Non-emergency contact: Primary Care Provider Call non-emergency contact if: you have any medication questions and your symptoms worsen Follow-up/Referrals: Yandel Jorge MD [Primary Care Provider] - 12/29/21 3:20 pm Diet: Heart Healthy Addtl Attending Provider Instructions: Take your medications as advised Your metoprolol doses have been increased and continue Eliquis for 1 month Please give appointment with your healthcare provider [facility] will make an appointment for you as an outpatient follow-up Pending Studies at Discharge: No Stand-Alone Forms: My ULTRA Testing, Smoking Cessation Medications and DC Order Prescriptions: New metoprolol tartrate 25 mg Tablet 25 mg PO BID 30 Days Qty: 60 RF: 0 Eliquis 5 mg Tablet 5 mg PO BID 30 Days Qty: 60 RF: 0 Continued epinephrine [EpiPen 2-Dawson] 0.3 mg/0.3 mL auto-injector 0.3 mg IM Q4H PRN (Reason: anaphylaxis) Qty: 2 RF: 0 albuterol sulfate [Ventolin HFA] 90 mcg/actuation Hfa Aerosol Inhaler 2 puff INHALATION QID PRN (Reason: Shortness Of Breath Or Wheezing) RF: 0 Discontinued metoprolol tartrate 25 mg tablet See Rx Instructions .ROUTE .COMPLEX RF: 0 Discharge Orders: Discharge Order (Routine); Ordered 12/25/21 Ordered By: Gloria Weiner Admission Data Admit Date/Time: 12/24/21 16:55 Attending Provider: Gloria Weiner Admit Provider: Norberto Joshua Primary Care Provider: Yandel Jorge Other Providers: Herve Kellogg ; Felix Rosen ; Norberto Joshua. Other Interventions: Discharge Summary Assessment (RN) Last Done: 12/25/21 11:28
== END 2021-12-25 11:28 | disposition home or self-care (01) | DRG 310 ==
LOC: ED 14:28 → SUATTDRO 16:55 → EDINP 16:55
DX: I48.0 Paroxysmal atrial fibrillation; I48.92 Unspecified atrial flutter; J45.909 Unspecified asthma, uncomplicated; F17.290 Nicotine dependence, other tobacco product, uncomplicated